=== PATIENT | female | born 2000 | race Caucasian/White ===

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

== ENCOUNTER 2020-03-07 09:28 | Emergency (ER) | payer BC, SELFPAY ==
[2020-03-07 09:29] VITALS: BP 140/108; PULSE 99; RESP 16; TEMP 36.6; O2SAT 98; BMI 29.0
[2020-03-07 09:54] LABS: Absolute Lymphocyte Count 2.18 X10^3/uL (0.83-4.51); Absolute Neutrophil Count 4.2 X10^3/uL (2.0-7.7); Basophil# 0.06 X10^3/uL; Basophil% 0.8 % (0-1); Eosinophils% 1.4 % (0-5); Hematocrit 43.9 % (37-47); Hemoglobin 14.3 g/dL (12.0-15.0); Lymphocyte # 2.18 X10^3/ul (4.0); Lymphocyte % 30.9 % (19-41); Mean Corp Hgb Conc 32.6 g/dL (32-36); Mean Corpuscular Hgb 29.4 pg (27.0-32.0); Mean Corpuscular Volume 90.1 fL (81-99); Mean Platelet Vol. 8.7 fl (6.2-12.0); Monocyte# 0.51 X10^3/uL; Monocyte% 7.2 % (0-10); NRBC Flagged by Analyzer 0 % (0-5); Neutrophil # 4.19 X10^3/uL (2.7-7.7); Neutrophil % 59.4 % (47-70); Platelet Count 428 K/mm3 (150-450); RBC Distribution Width CV 13.2 % (11.6-14.6); RBC Distribution Width SD 43.3 fl (35.1-43.9); Red Blood Count 4.87 M/mm3 (4.2-5.4); White Blood Count 7.1 K/mm3 (4.4-11.0)
[2020-03-07 10:08] LABS: AST(SGOT) 11 U/L (15-37); Alanine Aminotransfer ALT/SGPT 19 U/L (13-56); Albumin, Serum 3.8 g/dL (3.2-5.0); Alkaline Phosphatase 80 U/L (45-117); Anion Gap 4 (5-15); BUN 8 mg/dL (7-18); BUN/Creat Ratio 8.9 RATIO (10-20); Bilirubin, Direct 0.07 mg/dL (0.00-0.30); Calcium,Total 9.4 mg/dL (8.5-10.1); Chloride 111 mmol/L (98-107); Creatinine, Serum 0.89 mg/dL (0.55-1.02); EST Glomerular Filtration Rate 86 mL/min (>60); Est Glom Filt Rate - Afr Amer 104 mL/min (>60); Estimated Creatinine Clearance 95.18 ml/min; Globulin 4.1 g/dL (2.2-4.2); Glucose 93 mg/dL (74-106); Potassium 3.9 mmol/L (3.5-5.1); Protein, Total 7.9 g/dL (6.4-8.2); Sodium Level 141 mmol/L (136-145)
[2020-03-07 10:12] LABS: Alcohol, Blood (Medical)-Serum < 3.0 mg/dL
[2020-03-07 10:19] LABS: Internal QC Validated? YES +Cl - CLEAR BKGD; Pregnancy, Serum, hCG Quali. NEGATIVE Negative
--- NOTE | 2020-03-07 10:28 | ED.DCSUM_ITS ---
History of Present Illness Chief Complaint: Suicidal Informant: Patient Narrative: 19-year-old female presents to the emergency department with suicidal thoughts. She tells me that she has a history of bipolar disorder and sees the counseling center. She reports that her boyfriend of 3 years broke up with her last night stating that he does not love her anymore. She tells me she is not working and is not currently in school. She is currently staying with her parents. She states that it would appear that nobody wants her as she cannot find a job despite actively trying for it. She states that she researched overdosing on her medications and does not think that if she would take all of them that it would kill her. She did cut her left arm which she has a history of last night. She states she did that not as a suicidal gesture but to help with the pain she was emotionally feeling. Past Medical History - Allergies and Home Meds Allergies/Adverse Reactions: Allergies quetiapine [From Seroquel] Allergy (Verified 03/07/20 09:28) NEEDS FOLLOW-UP DEPRESSION, SUICIDAL THOUGHTS Primary Care Physician: Jensen Mcadams MD [Primary Care Provider] - Past Medical History: - - Bipolar disorder Surgical History: noncontributory Lives: With Family Smoking Status: Never smoker Drugs: None Review of Systems General: Denies: Chills, Fever, Sweats Eyes: Denies: Visual changes - bilaterally, Diplopia ENT: Denies: Rhinorrhea, Sore throat Cardiovascular: Denies: Chest pain, Palpitations Respiratory: Denies: Dyspnea, Cough, Dyspnea on exertion Gastrointestinal: Denies: Abdominal pain, Nausea, Vomiting, Diarrhea, Melena, Hematochezia Genitourinary: Denies: Dysuria, Hematuria, Frequency Musculoskeletal: Denies: Back pain, Extremity Pain Skin: Denies: Rash, Wounds Neurological: Denies: Headache, Weakness, Numbness Psych: Reports: Depression, Suicidal thoughts, Suicidal ideations Physical Exam Vital Signs/Narrative: Vital Signs Temp Pulse Resp BP Pulse Ox 03/07/20 09:29 97.8 F 99 16 140/108 H 98 Inital Vital Signs reviewed: Yes General: Well nourished, Well developed, No Acute Distress Head: Normocephalic, Atraumatic Eyes: Perrl, EOMI ENT: Moist mucous membranes, No rhinorrhea Neck: Supple, Nontender Cardiovascular: Regular rate, Regular rhythm, No murmurs Respiratory: No distress, CTA bilaterally, Chest nontender Abdomen: Soft, Nontender, Nondistended, Normal bowel sounds Back: Nontender, Normal Inspection Extremities: Nontender, No edema Skin: Normal color, No rash Neurological: Alert, Oriented x3, Cranial nerves II-XII grossly intact, Normal Strength, Normal Sensation Psychological: Depressed, Tearful Diagnostic/Tx/Re-eval Laboratory Last Values WBC 7.1 K/mm3 (4.4-11.0) 03/07/20 09:35 RBC 4.87 M/mm3 (4.2-5.4) 03/07/20 09:35 Hgb 14.3 g/dL (12.0-15.0) 03/07/20 09:35 Hct 43.9 % (37-47) 03/07/20 09:35 MCV 90.1 fL (81-99) 03/07/20 09:35 MCH 29.4 pg (27.0-32.0) 03/07/20 09:35 MCHC 32.6 g/dL (32-36) 03/07/20 09:35 RDW Std Deviation 43.3 fl (35.1-43.9) 03/07/20 09:35 RDW Coeff of Lorena 13.2 % (11.6-14.6) 03/07/20 09:35 Plt Count 428 K/mm3 (150-450) 03/07/20 09:35 MPV 8.7 fl (6.2-12.0) 03/07/20 09:35 Immature Gran % (Auto) 0.300 % (0.0-0.9) 03/07/20 09:35 Neut % (Auto) 59.4 % (47-70) 03/07/20 09:35 Lymph % (Auto) 30.9 % (19-41) 03/07/20 09:35 [place] % (Auto) 7.2 % (0-10) 03/07/20 09:35 Eos % (Auto) 1.4 % (0-5) 03/07/20 09:35 Baso % (Auto) 0.8 % (0-1) 03/07/20 09:35 Absolute Neuts (auto) 4.2 X10^3/uL (2.0-7.7) 03/07/20 09:35 Absolute Lymphs (auto) 2.18 X10^3/uL (0.83-4.51) 03/07/20 09:35 Nucleated RBC % 0 % (0-5) 03/07/20 09:35 Sodium 141 mmol/L (136-145) 03/07/20 09:35 Potassium 3.9 mmol/L (3.5-5.1) 03/07/20 09:35 Chloride 111 mmol/L (98-107) H 03/07/20 09:35 Carbon Dioxide 26.0 mmol/L (21.0-32.0) 03/07/20 09:35 Anion Gap 4 (5-15) L 03/07/20 09:35 BUN 8 mg/dL (7-18) 03/07/20 09:35 Creatinine 0.89 mg/dL (0.55-1.02) 03/07/20 09:35 Estim Creat Clear Calc 95.18 ml/min 03/07/20 09:35 Est GFR (MDRD) Af Amer 104 mL/min (>60) 03/07/20 09:35 Est GFR (MDRD) Non-Af 86 mL/min (>60) 03/07/20 09:35 BUN/Creatinine Ratio 8.9 RATIO (10-20) L 03/07/20 09:35 Glucose 93 mg/dL (74-106) 03/07/20 09:35 Calcium 9.4 mg/dL (8.5-10.1) 03/07/20 09:35 Total Bilirubin 0.30 mg/dL (0.20-1.00) 03/07/20 09:35 Direct Bilirubin 0.07 mg/dL (0.00-0.30) 03/07/20 09:35 AST 11 U/L (15-37) L 03/07/20 09:35 ALT 19 U/L (13-56) 03/07/20 09:35 Alkaline Phosphatase 80 U/L (45-117) 03/07/20 09:35 Total Protein 7.9 g/dL (6.4-8.2) 03/07/20 09:35 Albumin 3.8 g/dL (3.2-5.0) 03/07/20 09:35 Globulin 4.1 g/dL (2.2-4.2) 03/07/20 09:35 Serum , Qual NEGATIVE Negative 03/07/20 09:35 Urine Opiates Screen NEGATIVE (< 300 ng/mL) 03/07/20 10:40 Urine Methadone Screen NEGATIVE (< 300 ng/mL) 03/07/20 10:40 Ur Barbiturates Screen NEGATIVE (< 200 ng/mL) 03/07/20 10:40 Ur Phencyclidine Scrn NEGATIVE (< 25 ng/mL) 03/07/20 10:40 Ur Amphetamines Screen NEGATIVE (<1000 ng/mL) 03/07/20 10:40 U Methamphetamin-MDMA NEGATIVE (< 500 ng/mL) 03/07/20 10:40 U Benzodiazepines Scrn NEGATIVE (< 200 ng/mL) 03/07/20 10:40 Urine Cocaine Screen NEGATIVE (< 300 ng/mL) 03/07/20 10:40 U Cannabinoids Screen POSITIVE (< 50 ng/mL) H 03/07/20 10:40 Ur Drug Screen Comment 03/07/20 10:40 Ethyl Alcohol < 3.0 mg/dL 03/07/20 09:35 - Medical Decision Making At 1108 the patient is medically clear for crisis/mental health evaluation. After discussing with social work and interviewing the patient and her mom they feel comfortable going home. Patient states that she is no longer suicidal. She has an appointment with her psychiatrist today.. ED Disposition - Plan for ED Patient: Disposition: Home or Assisted Living Diagnosis: Depression Instructions: ED Depression Referrals: Jensen Mcadams MD [Primary Care Provider] - As Needed Additional Instructions: Follow-up with your psychiatrist as scheduled
[2020-03-07 10:58] LABS: Amphetamine Urine VISTA NEGATIVE (<1000 ng/mL); Barbiturate Urine VISTA NEGATIVE (< 200 ng/mL); Benzodiazepine Urine VISTA NEGATIVE (< 200 ng/mL); Cocaine Urine VISTA NEGATIVE (< 300 ng/mL); Ecstacy Urine VISTA NEGATIVE (< 500 ng/mL); Methadone Urine VISTA NEGATIVE (< 300 ng/mL); PCP Urine VISTA NEGATIVE (< 25 ng/mL); THC Urine VISTA POSITIVE (< 50 ng/mL); Vista UDS pH Range 6
--- NOTE | 2020-03-07 11:31 | CM.ED ---
Social Work Consult: Suicidal Informant: Dr. Villa Chief Complaint: Patient reports to have had suicidal thoughts since last night with plan to overdose on my medications. Marital/Social History: Single Living Situation: Lives with parents, Estella and Rober Ulloa and older brother. Support/Resources: Patient reports positive support from family members. Patient active with counseling services [facility] and follows with Rebecca for counseling. Patient reports to follow with Maribell Sharma N.P. for medication management through [facility] as well. History: None. Education/Employment History: Unemployed. Graduated from high school. Completed some collage. Denies any issues with comprehension or understanding. Mental Health Treatment/history: Depression, Anxiety, Bi-Polar. Patient reports to take Abilify, Buspirone, and Prozac and to be compliant with medications. Patient denies any history of inpatient psychiatric placement. Patient does report plan to discontinue counseling with Rebecca through the counseling center due to she made me upset. Triggers/Stressors: Patient reports that patient boyfriendAbner broke up with patient last night. Patient states to have been in dating relationship with Abner for the past 3 years and he was all I had to live for. Coping Skills: my Dog and writing. Abuse Issues: Denies Substance Abuse hx: Reports daily use of tobacco products (vaping). Patient reports occasional weekend use of THC. Patient denies any other substance abuse/use. Risk to Self/Others: Suicidal: Patient reports suicidal thoughts last night and into this morning. Patient reports to have been begging my mom to bring me to the hospital last night. Patient reports to have been contemplating overdosing on patient medications all through the night and to have gotten really close and went to get patient father. Patient father then brought patient to the emergency room this morning for assessment. Patient reports history of suicide attempt at the beginning of this year via taking a few extra of patient medications. Patient reports that last suicidal thoughts was a few months ago prior to last evening and this morning. Patient reports to be having continues suicidal thoughts this morning and during conversation with this social service manager. This social service manager inquiring about what patient might have to live for, patient states I don't know. Patient reports to be feeling worthless. Homicidal: Patient reports homicidal thought about patient boyfrienAbner monae last night due to frustration and being hurt. Patient denies any plan or intent to hurt Abner or others. Violence: Patient reports to have cut forearms last night and prior to last night to have not cut self for about a year. Patient denies any legal issues or other harm against self. Mental Status Exam: A&Ox3 Appearance/General Behavior: Clean. Slumped. Calm. Mood/Affect: Depressed. Tearful. Communication Pattern: Responds to questions. Thought Process: Appropriate. Judgement: Fair. Assessment: Met with patient in room. Introduced self and social service manager role. Patient agreeable to speaking with this social service manager. Patient reports to be unsure if patient would feel safe to self. This social service manager collaborating with patient on possible outpatient plans such as following up with [facility] Behavioral Health program. Patient reports I just feel like I need watched. Patient does not feel comfortable with a plan to return to the community. Patient tearful throughout conversation. Active support and listening provided. Collaborating with Dr. Villa. Updated on above. PLAN: Facilitate transfer to inpatient psychiatric facility. Agusto MELLO, GLENN
--- NOTE | 2020-03-07 11:57 | CM.ED ---
Social Work Telephone call to Vivian Mott. Referral made. Clinical information faxed. Pending review. Agusto Rios MSW, GLENN
--- NOTE | 2020-03-07 13:09 | EKG12_ITS ---
Test Reason : Blood Pressure : / mmHG Vent. Rate : 076 BPM Atrial Rate : 076 BPM P-R Int : 150 ms QRS Dur : 080 ms QT Int : 376 ms P-R-T Axes : 016 052 028 degrees QTc Int : 423 ms Normal sinus rhythm Nonspecific ST abnormality Abnormal ECG Confirmed by MAYA SMITH, XENIA ([id number]), loan expeditor LUH RIVERA ([id number]) on 03/12/2020 9:30:57 A M Referred By: EDD Confirmed By:RANDEE TREJO MD
[2020-03-07 13:20] LABS: Probe Check PASS; Specimen Processing Control PASS
--- NOTE | 2020-03-07 14:54 | CM.ED ---
Social Work Patient motherEstella to patient room and asking to speak with this social welfare research worker. Patient and patient mother have been talking about safety plan to home and what that might look like for patient. Patient reports now to feel safe to return to home. Patient mother reports to not be working the rest of the day or tomorrow and is able to stay with patient. Patient and patient mother now comfortable with plan for patient to discharge to home with mental health follow up. Patient to see Christin Sharma this evening at 6:30pm as a standing appointment and plans to follow up with. This social welfare research worker broached topic of Behavioral Health program at [facility] for further follow up care as well. Patient is open to intake appointment with Behavioral Health program at [facility]. Patient agreeable to intake appointment for 03/08/2020 @ 3:00pm. Patient mother reports to be able to provide transportation for patient. Patient reports to have reason to live as my family. Patient identifies patient mother as main support and person to talk with. Patient and patient mother counseled on lethal means. Patient mother to lock up and manage patient medications and there are no firearms in the home. Patient provided with local counseling resources, appointment reminder for [facility] Behavioral Health, and crisis hotline number. Collaborating with Dr. Villa. Agreeable to safety plan to home with mental health services follow up. Telephone call to Vivian Mott. Referral Canceled. PLAN: Discharge to home with Behavioral Health follow up tomorrow. Agusto MELLO, GLENN
== END 2020-03-07 15:26 | disposition home or self-care (01) ==
PROVIDERS: Emergency Provider Emergency Medicine; PCP Family Medicine
DX: F31.9 Bipolar disorder, unspecified (principal)
CPT/HCPCS: 36415; 80048; 80076; 80307; 80320; 84703; 85025; 87635; 93005; 99284; G0480; U0002

== ENCOUNTER 2020-03-24 13:04 | Emergency (ER) | payer BC, SELFPAY ==
[2020-03-24] VITALS (11 sets, daily range): BP systolic 132–171; BP diastolic 44–101; PULSE 55–132; RESP 14–23; TEMP 36.4–37.1; O2SAT 96–99; BMI 31.0
--- NOTE | 2020-03-24 13:14 | ED.RN ---
MOTHER [employer] EMPLOY[employer], CAME TO TRIAGE, UPSET WITH DAUGHTER, RAISED VOICE SAYING WE'RE NOT DONG THIS AGAIN. THIS RN ASKED MOTHER GIVE DAUGHTER SPACE, TOLD MOTHER WE NEEDED TO EVALUATE PT AND GOAL WAS NOT TO UPSET PT FURTHER. MOTHER WALKED AWAY.
--- NOTE | 2020-03-24 13:31 | RAD_ITS ---
STUDY: X-RAY CHEST REASON FOR EXAM: Female, 19 years old. COUGH, SUICIDAL. NO CHEST COMPLAINTS TODAY TECHNIQUE: Single view of the chest was obtained COMPARISON: None. FINDINGS: No consolidative process, pleural effusion or pneumothorax. Cardiac size within normal limits. Osseous structures demonstrate no acute abnormalities. Platelike atelectasis in the lung bases. IMPRESSION: No acute cardiopulmonary pathology Electronically Signed: Kayode Villalobos, at 15:20 EST Tel , Service support , RAD/Chest 1 View (Portable)
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
[2020-03-24 13:54] LABS: Color, Urine Straw (Yellow); Glucose, Dipstick Normal (Normal); Ketone-Dipstick Negative (Negative); Leukocyte Esterase-Dipstick 500 /ul (Negative); Mucous, Urine 0 SEEN /hpf (<or=2+); Nitrite-Dipstick Negative (Negative); Occult Blood-Urine Negative /ul (Negative); Protein-Dipstick Negative (Negative); Red Blood Cells-Urine 0 SEEN /hpf (0-5); Urine Bilirubin Dipstick Negative (Negative); Urine Clarity Clear (Clear); Urine Urobilinogen Normal (Normal)
[2020-03-24] MEDS: Activated Charcoal 25 GM/120 ML BOT PO (13:55)
[2020-03-24 13:58] LABS: Amphetamine Urine VISTA NEGATIVE (<1000 ng/mL); Barbiturate Urine VISTA NEGATIVE (< 200 ng/mL); Benzodiazepine Urine VISTA NEGATIVE (< 200 ng/mL); Cocaine Urine VISTA NEGATIVE (< 300 ng/mL); Ecstacy Urine VISTA NEGATIVE (< 500 ng/mL); Methadone Urine VISTA NEGATIVE (< 300 ng/mL); PCP Urine VISTA NEGATIVE (< 25 ng/mL); THC Urine VISTA POSITIVE (< 50 ng/mL); Vista UDS pH Range 6
[2020-03-24 14:05] LABS: White Blood Cells 0-5 SEEN /hpf (0-5)
[2020-03-24 14:06] LABS: Amorphous Sediment 2+; Bacteria 1+ /hpf (None Seen); Squamous Epithelial Cells - UA 0-5 SEEN /hpf (5-10)
[2020-03-24] MEDS: Metoclopramide 10 MG/2 ML Vial 5 MG IM (14:09)
[2020-03-24 14:14] LABS: Absolute Lymphocyte Count 2.12 X10^3/uL (0.83-4.51); Absolute Neutrophil Count 6.9 X10^3/uL (2.0-7.7); Basophil# 0.06 X10^3/uL; Basophil% 0.6 % (0-1); Eosinophil# 0.26 X10^3/uL; Eosinophils% 2.6 % (0-5); Hematocrit 44.4 % (37-47); Hemoglobin 14.7 g/dL (12.0-15.0); Lymphocyte # 2.12 X10^3/ul (4.0); Lymphocyte % 21.2 % (19-41); Mean Corp Hgb Conc 33.1 g/dL (32-36); Mean Corpuscular Hgb 29.1 pg (27.0-32.0); Mean Corpuscular Volume 87.9 fL (81-99); Monocyte# 0.63 X10^3/uL; Monocyte% 6.3 % (0-10); NRBC Flagged by Analyzer 0 % (0-5); Neutrophil # 6.88 X10^3/uL (2.7-7.7); Neutrophil % 68.9 % (47-70); Platelet Count 409 K/mm3 (150-450); RBC Distribution Width CV 13.1 % (11.6-14.6); Red Blood Count 5.05 M/mm3 (4.2-5.4)
[2020-03-24 14:29] LABS: AST(SGOT) 12 U/L (15-37); Alanine Aminotransfer ALT/SGPT 21 U/L (13-56); Albumin, Serum 3.9 g/dL (3.2-5.0); Alkaline Phosphatase 94 U/L (45-117); Anion Gap 6 (5-15); BUN 7 mg/dL (7-18); Calcium,Total 9.3 mg/dL (8.5-10.1); Chloride 110 mmol/L (98-107); Creatinine, Serum 0.87 mg/dL (0.55-1.02); EST Glomerular Filtration Rate 88 mL/min (>60); Est Glom Filt Rate - Afr Amer 107 mL/min (>60); Estimated Creatinine Clearance 97.37 ml/min; Globulin 3.9 g/dL (2.2-4.2); Glucose 101 mg/dL (74-106); Potassium 3.8 mmol/L (3.5-5.1); Protein, Total 7.8 g/dL (6.4-8.2); Sodium Level 140 mmol/L (136-145)
[2020-03-24 14:30] LABS: Internal QC Validated? YES +Cl - CLEAR BKGD; Pregnancy, Serum, hCG Quali. NEGATIVE Negative
[2020-03-24 15:03] LABS: Acetaminophen (Tylenol) Level < 2.0 ug/mL (10.0-30.0)
[2020-03-24 15:04] LABS: Alcohol, Blood (Medical)-Serum < 3.0 mg/dL; Salicylate < 1.7 mg/dL (2.8-20.0)
--- NOTE | 2020-03-24 15:31 | EKG12_ITS ---
Test Reason : SUICIDAL Blood Pressure : / mmHG Vent. Rate : 112 BPM Atrial Rate : 112 BPM P-R Int : 142 ms QRS Dur : 076 ms QT Int : 382 ms P-R-T Axes : 072 049 041 degrees QTc Int : 521 ms Sinus tachycardia Prolonged QT Nonspecific T- wave abnormality Abnormal ECG Confirmed by VIDHI SMITH, BERNARDO ([id number]), city editor AGUSTIN KIM ([id number]) on 03/26/2020 1:28:28 PM Referred By: FELICIANO Confirmed By:BERNARDO MOSHER MD
--- NOTE | 2020-03-24 16:40 | ED.RN ---
SITTER AT BEDSIDE, NAOMI, CLOSED THE PT'S DOOR, PT REQUESTED TO TAKE A NAP.
[2020-03-24 17:20] LABS: Magnesium 2.1 mg/dL (1.6-2.6)
--- NOTE | 2020-03-24 17:44 | ED.RN ---
DR. CARRANZA INFORMED THIS NURSE THAT PT WILL OBSERVED LONGER THAT 1829, DUE TO QTc ELONGATION, WILL REPEAT EKG AND LABS LATER TODAY.
--- NOTE | 2020-03-24 18:44 | ED.RN ---
pt tearful and upset that she needs to be in the emergency room longer than expected, this nurse explained due to the medications pt ingested caused the QTc to be prolonged, will re-evaluate in a couple more hours, draw labs and repeat ekg.
--- NOTE | 2020-03-24 20:37 | EKG12_ITS ---
Test Reason : [facility] Pressure : / mmHG Vent. Rate : 090 BPM Atrial Rate : 090 BPM P-R Int : 150 ms QRS Dur : 076 ms QT Int : 344 ms P-R-T Axes : 068 053 036 degrees QTc Int : 420 ms Normal sinus rhythm Nonspecific T wave abnormality Abnormal ECG Confirmed by VIDHI SMITH, BERNARDO ([id number]), marketing editor AGUSTIN KIM ([id number]) on 03/26/2020 1:36:49 PM Referred By: FELICIANO Confirmed By:BERNARDO MOSHER MD
[2020-03-24 21:16] LABS: Anion Gap 6 (5-15); BUN 5 mg/dL (7-18); BUN/Creat Ratio 5.9 RATIO (10-20); Calcium,Total 9.3 mg/dL (8.5-10.1); Chloride 109 mmol/L (98-107); Creatinine, Serum 0.85 mg/dL (0.55-1.02); EST Glomerular Filtration Rate 91 mL/min (>60); Est Glom Filt Rate - Afr Amer 111 mL/min (>60); Estimated Creatinine Clearance 99.66 ml/min; Glucose 107 mg/dL (74-106); Potassium 3.9 mmol/L (3.5-5.1); Sodium Level 141 mmol/L (136-145)
--- NOTE | 2020-03-24 22:32 | ED.RN ---
Payal, crisis counselor, called this nurse for update on pt. Pt stated she will convince the crisis counselor to discharge pt home and not send pt to a [facility] facility. Pt has been texting her mother to convince her to let pt go home. Payal informed of same.
[2020-03-25 00:40] VITALS: BP 132/84; PULSE 95; RESP 18; TEMP 36.7; O2SAT 95
== END 2020-03-25 00:57 ==
LOC: ED 14:09
PROVIDERS: Emergency Provider Emergency Medicine; PCP Family Medicine
DX: R45.851 Suicidal ideations (principal); T43.222A Poisoning by selective serotonin reuptake inhibitors, intentional self-harm, initial encounter; F31.9 Bipolar disorder, unspecified
CPT/HCPCS: 36415; 71045; 80048; 80053; 80307; 80320; 80329; 81001; 83735; 84703; 85025; 87086; 87088; 87426; 93005; 96372; 99285; G0480

== ENCOUNTER → 2022-04-23 | Outpatient (CLI) | payer BC, SELFPAY ==
[2022-04-23 18:57] LABS: Vitamin D,25 Hydroxy 36.5 ng/mL
[2022-04-23 19:00] LABS: Anion Gap 7 (5-15); BUN 12 mg/dL (7-18); BUN/Creat Ratio 15.5 RATIO (10-20); Chloride 107 mmol/L (98-107); Cholesterol 185 mg/dL (200); Creatinine, Serum 0.78 mg/dL (0.55-1.02); EST Glomerular Filtration Rate 99 mL/min (>60); Est Glom Filt Rate - Afr Amer 120 mL/min (>60); Glucose 75 mg/dL (74-106); High Density Lipoprotein 65 mg/dL; Potassium 4.2 mmol/L (3.5-5.1); Sodium Level 140 mmol/L (136-145); Thyroid Stim Hormone (TSH) 2.53 uIU/mL (0.358-3.74); Triglycerides 126 mg/dL; Very Low Density Lipoprotein 25 mg/dL (5-40)
== END | disposition home or self-care (01) ==
PROVIDERS: PCP Family Medicine; Visit Provider Family Medicine
DX: Z00.00 Encounter for general adult medical examination without abnormal findings (principal)
CPT/HCPCS: 36415; 80048; 80061; 82306; 84443

== ENCOUNTER 2024-01-04 08:00 | Outpatient (RCR) | payer BC, SELFPAY ==
--- NOTE | 2024-01-04 09:00 | BH.SGPN.GN ---
Behaviors/Verbalizations/Mental Status: [] Client alert and oriented, casually dressed and groomed. Eye contact good. Motor activity appropriate. Speech within normal limits. Affect congruent, mood anxious and euthymic. Thoughts linear, logical, no signs of hallucinations or delusions. Reviewed client?s symptom tracker, no risk for suicidal ideation, plan, or intent as of 01/04/24 Client Response/Progress/Benefit: [] Client's first day in program and getting comfortable to group environment. Responded well to session, with being attentive towards other group members. Client discussed nervousness with starting program and being able to get up and start day this way with struggling to keep routines. Client discussed struggle of maintaining a job and said that coming here today was a big step for her. Client indicated that she gets nervous talking in a group, but was able to share comfortably today in group. Client receptive to input from group members on how they felt when starting the program and tips to manage stress with groups. Client appeared to benefit from reflecting on current MH and goals. Client will continue IOP tx to prevent decompensation and improve overall thinking. Narrative Note: []
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
--- NOTE | 2024-01-06 09:30 | BH.NA_ITS ---
Physical Data Vital Signs Pulse Rate: 73 Blood Pressure: 143/86 Height/Weight Height: 1.7 m Weight:: 93.894 kg Weight in Pounds: 207.0 lbs Current Medication Compliance Medication Compliance Do you take your medication as prescribed?: Yes Nutritional History Appetite Nutritional Instructions: Describe your appetite:: Good Additional nutritional information:: Client states she gained about 60lbs for the short time she was at college but states her appetite is stable right now. Functional Assessment Sleep Pattern Describe any problems with sleeping: Client states she sleeps 7-8 hours per night. Sensory/Communication Assess Vision Problems Do you have any vision problems?: Glasses Communication Problems Do you have difficulty understanding what people are saying?: No Medical Problems/History Neurological Conditions Neurological: Headaches Gastrointestinal Conditions Gastrointestinal: Other (See comments) (GERD) Musculoskeletal Conditions Musculoskeletal: Other (See comments) (joint pain/back pain but has not been formally diagnosed with anything) Family History Family History Other Diabetes Surgical History Surgical History Have you had any surgeries? If so, list type and date:: No Substance Abuse Substance Abuse Please describe substance abuse in the last 30 days:: Client states she was using alcohol a couple of years ago but denies recent use. Client states she vapes nicotine and occasionally has cigarettes. Client states she has a history of marijuana use but has not used recently. Client denies regular caffeine use. Mental Status Summary Mental Status Significant Findings/Observations on Appearance and Mood:: Client is alert and oriented x 4. Client is casually groomed. Client is cooperative with assessment. Client makes good eye contact. Client's voice has normal rate and volume. Client has appropriate affect. Client makes logical associations and has normal processing. Client denies delusions/hallucinations. Client denies any active SI with plan/or intent but does have a history of chronic passive SI. Suicide Assessment Suicidal Ideation Are you currently or have you been suicidal in the past?: Yes Suicidal Intentional Rating Scale (SIRS): Suicidal thoughts (past) Physician Notification Past Psychiatric History MH Treatment Hx Past Psychiatric Medications:: Depakote (impaired liver function), Seroquel (increased depression and skin picking), Buspar Age of first mental health symptoms: Client states she first took medication for mental health around age 17. Client states she was diagnosed with bipolar disorder Describe (age, circumstance, etc) any past hospitalizations: [facility] in 2021- by overdose Current providers for mental health treatment (counselor, psychiatrist, telephonic nurse case manager, etc.): Rober for counseling at [facility] Fall Risk Assessment Age Age: Less than 60 Mental Status Mental Status: Willing & able to ask for assistance when needed Physical Status Physical Status: No problems Impairments Impairments: None Elimination Elimination: Continent AND independent Gait or Balance Gait or Balance: Walks independently Hx of Falls History of falls in the past 6 months: No known history Medications/Substances Psychotropics:: Antidepressants and Antipsychotics Medications/substances used within the past 24 hours or ordered to administer: 1-2 of the medications/substances listed above Total Score Total Points:: 1 RN Summary of Impressions Impressions Recommendations Impressions: Psychiatric Issues: 1. Bipolar disorder, NOS 2. Generalized anxiety disorder 3. Borderline personality disorder 4. Rule out PTSD Level of Care How do the client's current symptoms and functional deficits support need for this level of care?: Client was referred to IOP by her PCP for depression and anxiety. Client states she recently had a break up from her boyfriend about a month ago and has been feeling more depressed since. Client reports that any time she feels criticized or yelled at, she becomes more depressed and anxious. Client states this is why she has been unable to keep a job. Client states she feels her mom is putting pressure on her to get a job, and this is a stressor. Da hitchcock reports some crying, avoidance and irritability. Client states she has had some SI in the past, but denies recent SI. IOP will promote gains and prevent further decompensation while providing social support and skills training.
--- NOTE | 2024-01-06 10:10 | BH.SGPN.GN ---
Behaviors/Verbalizations/Mental Status: [] Client alert and oriented, casually dressed and groomed. Eye contact good. Motor activity appropriate. Speech within normal limits. Affect congruent, mood euthymic and anxious. Thoughts linear, logical, no signs of hallucinations or delusion Client Response/Progress/Benefit: [] Client was an active participant AEB contributing to discussion, taking notes, and engaging in group activity. Connected with the topic of pitfalls and listened to group discussion on barriers that prevent from choosing a healthier path to mental wellness. Group worked together to identify examples of personal pitfalls which included; isolation, avoidance, making excuses, denial, distortions, and unhealthy coping. Client identified depending on others, self sabotage, and avoidance as personal pitfalls that have inhibited progress in the past. Client benefited from group as client learned to better identify potential barriers to improving mental health symptoms. Client will continue IOP tx to prevent decompensation, gain healthy support, and increase daily self care. Narrative Note: []
[2024-01-06 10:37] VITALS: BP 143/86; PULSE 73
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
--- NOTE | 2024-01-06 11:45 | BH.DR.ITP ---
Initial Treatment Plan Patient Information Visit Information: ADMISSION DATE: EXPECTED LOS: 4-6 weeks Problems/Symptoms Problem #1:: Depression Symptom:: Sadness, recent thoughts of self-harm, hopelessness, worthlessness, decreased concentration, guilt, biological disruption of sleep with hypersomnia, irritability Problem #2:: Anxiety Symptom:: Worry, rumination, panic attacks, avoidance
--- NOTE | 2024-01-06 14:49 | BH.MTP ---
Master Treatment Plan Patient Information Program Physician:: Dr. Jaylin Calvin Primary Therapist:: Giulia TRAN Psychiatric Diagnoses Psychiatric Diagnoses:: Bipolar disorder, NOS; Generalized anxiety disorder; Borderline personality disorder; Rule out PTSD Diagnosis Code(s):: F 31.9; F 41.1 Estimated LOS Estimated LOS (in weeks):: 6 Problem/Goal #1 Problem/Goal #1 Stated Goal:: Pt will decrease depressive symptoms, hopelessness, worthlessness, negative self-talk, and self-harm. Description of Barriers: Pt reports she has been in therapy for a while, but self-reports that she does not utilize the skills consistently. Pt is unable to keep a job due to her low distress tolerance per her report. Pt uses [employer] and smokes/vapes daily. Functional Impact: Pt is a 23-year-old female with a history of Bipolar NOS, MDD, and JAVIER. Pt was referred to [facility] by her PCP, Dr. Panchal, due to worsening symptoms of depression, anxiety, and agitation over the past few weeks. Triggers include recent break-up and difficulty maintaining a job. Pt currently endorses crying spells, hopelessness, lack of motivation, lack of energy, increased sleep, racing thoughts, restlessness, poor concentration, and isolation. Pt reports her mental health symptoms lead to pt either quitting or getting let go from jobs. Pt also reports difficulty functioning in her daily life due to symptoms. Goal Relevant Strengths/Supports: Pt is connected with outpatient therapy and she has a PCP. Pt reports being close with her mother and she reports motivation to get help. Objectives Objective #1: Stated Objective: Pt will learn and utilize 2-3 healthy coping strategies to better manage depressive symptoms and reduce frequency of SI as shown by a decrease of DMS-5 symptoms for depression. Interventions: Through group and individual sessions, therapist will help pt identify triggers and warning signs of depression and guilt including emotional, physical, and behavioral changes. Therapist will teach pt various coping skills to manage symptoms and give pt tangible resources to use to regulate emotions. Therapist will use cognitive restructuring techniques and help pt gain awareness of negative thoughts that reinforce guilt and depression. Therapist will provide psychoeducation on maintenance cycles and help pt learn ways to break unhealthy maintenance cycles. Therapist will help pt incorporate behavioral activation and assist pt in setting SMART goals. Discharge Criteria: Pt will have met this goal when can report learning and using at least 2 coping skills to manage depressive symptoms and reduce isolation. Additionally, pt will have met this goal when pt's DSM-5 scores for depression decrease. Target Date: 02/15/24 Review Date: 02/01/24 Status: open Objective #2: Stated Objective: Pt will identify 2 triggers and 2 coping skills to use when pt experiences mood dysregulation and has increased urges to engage in unhealthy, impulsive coping skills. Interventions: Through individual and group counseling pt will be provided with education on healthy coping skills to manage mood symptoms, impulse, and crisis behaviors. Therapist will provide information on healthy alternatives to emotion release. Individual therapist will teach pt DBT techniques to increase emotional regulation and mindfulness. Therapist will also engage pt to use self-compassion while working to change behaviors. Discharge Criteria: Pt will have accomplished this goal when pt can identify at least 2 triggers and 2 coping skills to increase mood stability and reduce unhealthy action urges. Target Date: 02/15/24 Review Date: 02/01/24 Status: open Problem/Goal #2 Problem/Goal #2 Stated Goal:: Will reduce anxiety symptoms through increasing emotional regulation and distress tolerance skills Description of Barriers: Pt reports she has been in therapy for a while, but self-reports that she does not utilize the skills consistently. Pt is unable to keep a job due to her low distress tolerance per her report. Pt uses [employer] and smokes/vapes daily. Functional Impact: Pt is a 23-year-old female with a history of Bipolar NOS, MDD, and JAVIER. Pt was referred to [facility] by her PCP, Dr. Panchal, due to worsening symptoms of depression, anxiety, and agitation over the past few weeks. Triggers include recent break-up and difficulty maintaining a job. Pt currently endorses crying spells, hopelessness, lack of motivation, lack of energy, increased sleep, racing thoughts, restlessness, poor concentration, and isolation. Pt reports her mental health symptoms lead to pt either quitting or getting let go from jobs. Pt also reports difficulty functioning in her daily life due to symptoms. Goal Relevant Strengths/Supports: Pt is connected with outpatient therapy and she has a PCP. Pt reports being close with her mother and she reports motivation to get help. Objectives Objective #1: Stated Objective: Pt will increase ability to manage stressors and anxiety by gaining 2-3 distress tolerance skills. Interventions: Through group and individual therapy, pt will learn various coping skills to help manage stress and anxiety. Therapist will utilize DBT distress tolerance skills to increase awareness and give pt tools to more effectively manage anxiety. Therapist will provide psychoeducation on emotional regulation and help pt identify unhealthy coping skills he wants to change. Discharge Criteria: Pt will have accomplished this goal when can report improved ability to manage stressors and identify at least 2 distress tolerance skills. Target Date: 02/15/24 Review Date: 02/01/24 Status: open Objective #2: Stated Objective: Pt will identify 2-3 anxiety triggers and 2 coping skills to use when feeling anxious or overwhelmed to manage anxiety as shown by reducing DSM-5 scores for anxiety Interventions: Therapist will provide education on anxiety, avoidance behaviors, and maintenance cycles. Therapist will help pt explore personal symptoms and warning signs of anxiety and irritability. Therapist will teach pt coping skills to improve emotional regulation, mindfulness, and distress tolerance to help pt cope with anxiety in the moment. Discharge Criteria: Pt will have accomplished this goal when she can identify at least 2 triggers and report using 2 coping skills to manage anxiety. Additionally, pt will have accomplished this goal AEB reduction of DSM-5 scores for anxiety. Target Date: 02/15/24 Review Date: 02/01/24 Status: open
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
--- NOTE | 2024-01-07 09:05 | BH.SGPN.GN ---
Behaviors/Verbalizations/Mental Status: [] Eye contact good. Motor activity appropriate. Speech within normal limits. Affect congruent, mood content but some anxiety. Thoughts linear, logical, no signs of hallucinations or delusions. Reviewed client?s symptom tracker, pt denies SI,?plan, or intent as of 01/07/2024. Client Response/Progress/Benefit: [] Client receptive of session, attentive and willing to process with group. ?Identified mental health ?win as doing well to follow-through with showing up for IOP this morning despite struggling with anxiety about doing so. Noted reminding herself of the potential benefits of doing so. Additional win noted as spending time practicing self-reflection last night. Reports it was uncomfortable at first but overall beneficial. Stressor identified as her brother and [id number] planning to move out of state soon. Pt reports plans to spend as much time as possible with them beforehand. Receptive of and appearing to benefit from group support. Recommended continued IOP tx to promote mood stability, consistent skill application, well as prevent decompensation. Narrative Note: []
--- NOTE | 2024-01-07 10:10 | BH.SGPN.GN ---
Behaviors/Verbalizations/Mental Status: [] Eye contact is good. Motor activity is appropriate. Appearance is casual. Speech is Appropriate. Mood is euthymic. Affect is congruent. Thoughts are linear and logical. No evidence of psychosis. Client Response/Progress/Benefit: [] Pt engaged participant AEB listening to others, engaging in activity, and providing feedback at times. Attentive during psychoeducation and provided insight into obstacles that impede mental wellness. Pt shared with group current mental health reality and desired mental health reality. Stating she would like to be able to manage mental health more effectively so she can maintain a job and improve communication skills. Identified barriers to desired reality include: poor communication, not practicing skills, poor self-care, and low motivation. Benefited from taking look at current mental health state and obstacles for progress. Pt to continue IOP tx to challenge distorted thoughts, improve confidence, and prevent decompensation.
--- NOTE | 2024-01-07 11:15 | BH.SGPN.GN ---
Behaviors/Verbalizations/Mental Status: []Eye contact is good. Motor activity is appropriate. Appearance is neat. Speech is Appropriate. Mood is anxious and euthymic. Affect is congruent. Thoughts are linear and logical. No evidence of psychosis. Client Response/Progress/Benefit: []Pt was an engaged participant in group discussion and activity. Worked with group to identify strategies to help overcome barriers and obstacles to desired reality. Group developed strategies for the common barriers. Identified personal barriers to desired reality and choose one obstacle to work. Pt stated pt wants to work on barrier of avoidance by working more on using grounding skills like deep breathing to manage her anxiety. Pt seemed to benefit from increased repertoire of healthy coping skills/strategies to overcome common barriers to moving forward. Pt is to continue IOP to promote mood stability, increase distress tolerance skills, and improve daily functioning. Narrative Note: []
--- NOTE | 2024-01-11 09:00 | BH.SGPN.GN ---
Behaviors/Verbalizations/Mental Status: [] Eye contact is good. Motor activity is appropriate. Appearance is casual. Speech is Appropriate. Mood is anxious. Affect is congruent. Thoughts are linear and logical. No evidence of psychosis. Reviewed daily check in sheet and no reports of suicidal ideations or intent. Client Response/Progress/Benefit: [] Pt was an active participant in group discussion. Attentive. Daily symptom tracker notes 3/5 for anxiety and 2/5 for depressed mood. Pt was able to identify mental health wins and healthy habits. Shared that she has been practicing coping, calming, and mindfulness skills. She has been trying to use these skills when she notices herself becoming anxious, stressed, angry, or depressed. Gave an example of implementing skills early which proved to be beneficial. Emotion for today is detached'. Progress noted. Benefited from group support, encouragement, and feedback. Will continue in IOP to prevent decompensation, stablize mood, and improve functioning. Narrative Note: []
--- NOTE | 2024-01-11 10:15 | BH.SGPN.GN ---
Behaviors/Verbalizations/Mental Status: []Client alert and oriented, casually dressed and groomed. Eye contact good. Motor activity appropriate. Speech within normal limits. Affect congruent, mood content. Thoughts linear, logical, no signs of hallucinations or delusions. Client Response/Progress/Benefit: []Pt was an attentive an active participant, AEB taking notes and providing input in group discussion when prompted. Attentive during psychoeducation. Pt engaged during interactive discussion in which the group defined self-care and discussed its benefits. Group discussed barriers to engaging in self-care. Group members together came up with guilt, time, ?people pleasing?, not knowing what to do, and perception that its unproductive as barriers to engage in self-care. Pt stated their personal barrier is feeling like pt must ?earn it and lack of motivation to practice self-care. Pt participated in small groups where they worked to identified and challenged common self-care ?myths?. Benefited from increased awareness of self-care, its benefits, and the consequences of not utilizing self-care strategies. Will continue IOP tx to prevent rehospitalization, improve daily functioning, and increase distress tolerance skills. Narrative Note: []
--- NOTE | 2024-01-11 11:18 | BH.SGPN.GN ---
Behaviors/Verbalizations/Mental Status: [] Client alert and oriented, casually dressed and groomed. Eye contact good. Motor activity appropriate. Speech within normal limits. Affect congruent, mood anxious and depressed. Thoughts linear, logical, no signs of hallucinations or delusions. Client Response/Progress/Benefit: []Client engaged in discussion reviewing different areas of self-care and completing self-assessment of current self care, as well as providing input throughout discussion. Did well to complete self-care self-assessment worksheet. Client identified current self-care practices and what self-care activities client wants to start using. Client selected psychological self-care to begin practicing more consistently. Client plans to do this by challenging herself to spend time unplugged from social media daily. Appeared to benefit from completing the self-care evaluation and gaining insights into current self-care practices, as well as identifying areas in which client would like to improve upon. Client will continue IOP tx to prevent decompensation, improve mood stability, and increase healthy coping repertoire. Narrative Note: []
--- NOTE | 2024-01-13 09:00 | BH.SGPN.GN ---
Behaviors/Verbalizations/Mental Status: [] Pt alert and oriented, neatly dressed and groomed. Eye contact good. Motor activity appropriate. Speech within normal limits. Affect congruent, mood euthymic. Thoughts linear, logical, no signs of hallucinations or delusions. Reviewed pt?s symptom tracker, no risk for suicidal ideation, plan, or intent 01/13/24 Client Response/Progress/Benefit: []Pt responded well to session, attentive and engaged. Pt reports feeling anxious and grateful this morning. Pt shared she is not sure why she feels anxious, but she connected with peers who mentioned they get anxious when they are doing better. Pt's mental health wins today include having a spiritual moment yesterday and getting to hang out with a bunch of her family. Pt reports she is really benefitting from IOP and she has been using deep breathing consistently. Pt appeared to benefit from reflecting on positives and connecting with peers. Pt will continue IOP tx to prevent decompensation, improve distress tolerance, and increase self-confidence. Narrative Note: []
--- NOTE | 2024-01-13 10:10 | BH.SGPN.GN ---
Behaviors/Verbalizations/Mental Status: [] Eye contact is fair. Motor activity is appropriate. Appearance is casual. Speech is Appropriate. Mood is anxious and dysthymic. Affect is constricted. Thoughts are linear and logical. No evidence of psychosis. Client Response/Progress/Benefit: [] Pt an active participant in group discussions. Participated during interactive discussion on defining conflict (internal/external) and possible benefits to conflict. Attentive during psychoeducation on conflict styles (Avoidant, Accommodating, Competing, Cooperative) and engaged during interactive discussion in which peers identified the benefits and consequences to each conflict style. Pt identified their primary conflict style as avoidant with friends and is collaborating with family. Benefited from increased awareness of the impact of conflict styles in mental health. Will continue in IOP tx to improve distress tolerance, increase healthy coping skills, and prevent decompensation.
--- NOTE | 2024-01-13 14:51 | BH.MDN ---
Multi-Disciplinary Note Note 30-min Individual: Time Started:: 11:40 Date: 01/13/24 Purpose of session/treatment goals addressed:: To work on goal #2 of pt's tx plan. Eye Contact:: Good Motor Activity:: Restless Appearance:: Casual Speech:: Appropriate Mood:: Euphoric (pt reports feeling slightly manic.) Affect:: Full Thoughts:: Linear, Logical and No evidence of hallucinations/delusions noted Staff Interventions:: CBT techniques, mindfulness skills, strengths perspective, goal setting, taught coping skills and other (discussed warning signs for ana and worked on a stress management worksheet.) Client Response:: Pt responded well to session, open to meeting with therapist. Pt reports I might be getting manic as pt has more energy, motivation, and she is more productive currently. Pt stated she is still sleeping though which is positive. Pt reported it can be hard for her to decipher what her baseline is from her hypomania. Pt receptive to discussion on this and gained insight that spending money is her baseline while starting more projects that usual is a sign of hypomania. Pt brought in some stress management worksheets she printed and wanted to work on today. This helped pt identify ways she responds to stress and pt was able to see if these responses are helpful or harmful. Most of pt's responses to stress included some form of avoidance or shutting down. Pt shared these are effective in the moment, but it makes it very challenging for pt to regulate her emotions and maintain employment. Pt stated she has been trying to use more calming skills to manage anxiety and pt was open to the idea of building distress tolerance through goals in IOP. Pt shared she would benefit from doing some exposure goals to reduce pt's social anxiety and fear of what others will say. Pt shared she can work on this by challenging herself to share more when she is put into a small group during group sessions. Pt is also encouraged to practice Delay, Distract, Decide when she has urges to avoid, skin-pick, or shut down. Risks/Concerns:: Pt reports belief she is becoming hypomanic, but pt is still sleeping which is positive. Pt denies any SI, plan, or intent. Pt receptive to working on practicing distress tolerance skills. Progress Toward Goals/Plan:: Pt's second week of IOP tx and pt reports I love it. Pt shared she is enjoying the topics and also socializing. Pt has been avoiding and isolating a lot lately, so this is helping pt gain social confidence. Pt's anxiety is the biggest reason for seeking IOP tx per her report. Pt has been unable to maintain a job due to her anxiety which then triggers depressive symptoms. Pt will continue IOP tx to prevent decompensation, increase distress tolerance skills, and improve daily functioning. Time Stopped:: 12:15
--- NOTE | 2024-01-14 09:05 | BH.SGPN.GN ---
Behaviors/Verbalizations/Mental Status: [] Eye contact good. Motor activity appropriate. Speech within normal limits. Affect congruent, mood dysthymic. Thoughts linear, logical, no signs of hallucinations or delusions. Reviewed client?s symptom tracker, pt denies SI,?plan, or intent as of 01/14/2024. Client Response/Progress/Benefit: [] Client receptive of session, attentive and willing to process with group. Reports ongoing sx of depression?(3/5) and improving anxiety (3/5) per daily sx tracker. ?Identified mental health ?win as doing well to use opposite action and positive self-talk to encourage herself to remain consistent with taking medications. Additional win noted as continued progress with goals of having more consistently open and honest communication with supports, as pt self-reports struggling with shutting down. Stressor noted as an influx in distorted thoughts and fears that I'll never get better. Appeared to benefit from group supportive feedback, suggestions, and thought challenging. Recommended continued IOP tx to maintain mood stability, promote consistent skill application, well as prevent decompensation. Narrative Note: []
--- NOTE | 2024-01-14 10:10 | BH.SGPN.GN ---
Behaviors/Verbalizations/Mental Status: [] Eye contact is good. Motor activity is appropriate. Appearance is casual. Speech is Appropriate. Mood is content. Affect is congruent. Thoughts are linear and logical. No evidence of psychosis. Client Response/Progress/Benefit: [] Pt receptive to session AEB listening attentively to others and taking notes. Pt attentive and contributing throughout psychoeducation on the cognitive triangle and maintenance cycles. Pt engaged during group discussion reviewing the impact of daily activities and behaviors in either reinforcing unhealthy maintenance cycles and depression or assisting in reducing symptoms (?down? vs ?up? activities). Pt identified personal ?down? activities they engage in as: isolating, napping, shutting down, and skin picking. Attentive during discussion on Common ?Up? activities Pt identified theirs to include: being creative, getting outside, and being social. Appeared to benefit from increased awareness of current behaviors and impact these have on mental health. Will continue IOP to reduce negative self-talk, improve daily functioning, and increase use of healthy coping skills. Narrative Note: []
--- NOTE | 2024-01-14 11:10 | BH.SGPN.GN ---
Behaviors/Verbalizations/Mental Status: [] Eye contact is good. Motor activity is appropriate. Appearance is casual. Speech is Appropriate. Mood is euthymic. Affect is full. Thoughts are linear and logical. No evidence of psychosis Client Response/Progress/Benefit: [] Pt responded well to session, attentive and engaged in group discussions and activity. Active participant as group discussed values and the benefits that knowing one's values can have on one's mental health. Pt explored own values and identified personal top values. Pt stated personally important values are family and hobbies. ?Pt set a goal to make time to work on learning a new hobby.. Benefited from increased awareness of their personal values and how incorporating their values into behavioral activation goals can positive impact mental health. Will continue in IOP to prevent decompensation, gain healthy coping skills, stablize mood, and improve functioning. Narrative Note: []
== END 2024-01-18 23:59 ==
LOC: BHIOP 08:00
PROVIDERS: PCP Family Medicine; Referring Provider Psychiatry & Neurology Psychiatry; Visit Provider Psychiatry & Neurology Psychiatry
DX: F31.9 Bipolar disorder, unspecified (principal); F41.1 Generalized anxiety disorder; F60.3 Borderline personality disorder; Z79.899 Other long term (current) drug therapy
CPT/HCPCS: S9480; 90832; 90853

== ENCOUNTER 2024-01-19 08:04 | Outpatient (RCR) | payer BC, SELFPAY ==
[2024-01-19 00:48] VITALS: BP 143/86; PULSE 73
--- NOTE | 2024-01-19 09:00 | BH.SGPN.GN ---
Behaviors/Verbalizations/Mental Status: [] Eye contact is good. Motor activity is appropriate. Appearance is casual. Speech is Appropriate. Mood is depressed/irritable. Affect is congruent.. Thoughts are linear and logical. No evidence of psychosis. Reviewed daily check in sheet and no reports of suicidal ideations or intent. Client Response/Progress/Benefit: [] Pt participated at times during the group discussions. Attentive. According to pt she was in a ?manic phase? last week and she ?crashed? on Thursday. Reports feeling sad and anxious since Thursday. Perspective that she has little control of her emotions. Emotion for today is ?troubled?. According to pt she is still practicing her coping skills and engaging socially. Regression noted. Benefited from group support, encouragement, and feedback. Will continue in IOP to prevent decompensation, stabilize mood, and increase healthy coping. Narrative Note: []
--- NOTE | 2024-01-19 10:15 | BH.SGPN.GN ---
Behaviors/Verbalizations/Mental Status: []Eye contact is good. Motor activity is appropriate. Appearance is casual. Speech is Appropriate. Mood is euthymic and anxious. Affect is congruent. Thoughts are linear and logical. No evidence of psychosis. Client Response/Progress/Benefit: [] Pt was engaged and an active participant throughout, providing input and taking notes. Participated throughout interactive discussion on defining anxiety and identifying cognitive and physiological symptoms of anxiety. Group discussed the role of anxiety on isolation, avoidance, and who this emotion impacts their ability to start and complete activities/goals. Pt identified their physical/physiological signs of anxiety (i.e. dissociating, difficulty breathing, and GI issues). Pt identified safety behaviors (i,e shut down, avoid people and things, and sleep.) Benefited from increased awareness and insight on anxiety and its impact. Will continue in IOP to improve daily functioning, increase distress tolerance skills, and improve interpersonal effectiveness skills. Narrative Note: []
--- NOTE | 2024-01-19 11:15 | BH.SGPN.GN ---
Behaviors/Verbalizations/Mental Status: []Pt alert and oriented, casually dressed and groomed. Eye contact good. Motor activity appropriate. Speech within normal limits. Affect congruent, mood euthymic. Thoughts linear, logical, no signs of hallucinations or delusions. Client Response/Progress/Benefit: [] Pt was an active participant AEB pt providing input and listening attentively to peers. Attentive during psychoeducation on mindfulness coping skills and their impact on reducing anxiety and improving overall mental health wellness. Group was able to identify self-soothing and mind-based coping skills which included: 5-senses, meditation, deep breathing, TIPP, thought challenging, and progressive muscle relaxation. Pt also participated with peers in practicing mindfulness skills in session including deep breathing. Pt would like to work on using opposite action when she wants to avoid to manage anxiety. Appeared to benefit from increasing repertoire of anxiety reduction skills. Pt will continue in [facility] tx to promote mood stability, increase use of healthy coping skills, and improve daily functioning. Narrative Note: []
--- NOTE | 2024-01-20 09:00 | BH.SGPN.GN ---
Behaviors/Verbalizations/Mental Status: []Pt alert and oriented, neatly dressed and groomed. Eye contact fair. Motor activity appropriate. Speech within normal limits. Affect congruent, mood anxious and tired. Thoughts linear, logical, no signs of hallucinations or delusions. Reviewed pt?s symptom tracker, no risk for suicidal ideation, plan, or intent 01/20/24 Client Response/Progress/Benefit: []Pt was an active participant in group discussions. Attentive. Able to identify mental health wins including looking forward to seeing the psychiatrist today and journaling which has been helpful. Pt's stressor today is that pt feels she recently crashed from a manic episode and now pt is feeling more negative and down. Pt stated pt is feeling irritated this morning. Pt receptive to feedback from peers which pt reported was helpful. Progress noted. Benefited from group support, encouragement, and feedback. Will continue in IOP to prevent decompensation, improve daily functioning, and combat distortions. Narrative Note: []
--- NOTE | 2024-01-20 10:10 | BH.SGPN.GN ---
Behaviors/Verbalizations/Mental Status: [] Eye contact is good. Motor activity is appropriate. Appearance is casual. Speech is Appropriate. Mood is content. Affect is congruent. Thoughts are linear and logical. No evidence of psychosis Client Response/Progress/Benefit: [] Pt responded well to session AEB contributing to small group discussion, taking notes, and listening attentively to others. Group defined anger and discussed the benefits of managed anger and anger as a secondary emotion. Group shared perspective on benefits of anger as advocating for self and getting needs met, as well as a catalyst for change. Pt completed worksheet on anger triggers and personal warning signs of anger. Pt identified struggling more to manage other's anger responses. Appeared to benefit from increased knowledge of the anger cycle as well as personal triggers. Will continue IOP to increase healthy coping, prevent decompensation, and improve mood stability. Narrative Note: []
--- NOTE | 2024-01-20 12:12 | PCM.BH.PN_ITS ---
Progress Note Progress Note: History of Present Illness/Interim History: Patient is a 23-year-old female with a history of bipolar disorder NOS, depression, anxiety and cluster B traits who is seen in follow-up at the [facility] behavioral health [facility]. I last saw the patient 2 weeks ago and at that time no medication changes were made as her Prozac had been increased 1 week before. Patient is somewhat inconsistent in her history at times. She states that her depression overall is improving but then later states that she feels she had a manic episode last week and then crashed into a deep depression which she is still in. She has said that she has increasing episodes of dissociation or fogginess and feels she cannot function and and cannot learn much due to this when she is in the groups. But today she says that she feels she is learning skills in the groups. She still vaping nicotine all day every day. Has not used marijuana for several months only because she has no money to buy it. She states that she had a panic attack about 3 days ago but told another staff member that she had not had panic attacks since October 2023 a day ago. At initial eval she says she last cut herself 1 to 2 months ago but then today states that she has not done any self-harm since 4 months ago. She denies passive thoughts of , suicidal ideation, plan for suicide, homicidal ideation, hallucinations, delusions. She feels occasionally hopelessness. Current Psychiatric Medications: [] Prozac 40 mg p.o. daily (dose increased 3 weeks ago); Abilify 30 mg p.o. daily; carbamazepine 200 mg 1 p.o. twice a day but patient only takes it once a day. Mental Status Examination: [] Patient is a 23-year-old female who is casually dressed and groomed with good hygiene and appears normal for stated age. She is ambulatory with a normal gait and has no psychomotor agitation or retardation. Eye contact is good and speech is normal rate and rhythm and fluent with no pressure. Mood is depressed and anxious. Affect is full and normal. Thought process is goal-directed and organized. Thought content: There is no evidence of passive thoughts of , suicidal ideation, plan for suicide, homicidal ideation, hallucinations or delusions. Reality testing is intact. Intelligence is above average. Insight is limited but improving. Judgment is intact. Impulsivity is high. Diagnoses: [] 1. Bipolar disorder, NOS 2. Generalized anxiety disorder 3. Borderline personality disorder 4. Rule out PTSD 5. Primary support and work issues Plan: [] The patient will continue the IOP and behavioral health at [facility] as the structure, support, education and group therapy will hopefully prevent worsening of the patient's symptoms. She felt safe during the interview and if it anytime she does not feel safe she agrees to let us know or go to the emergency room. Long discussion was had with the patient about the fact that she is on fairly high doses of medication and does not seem to really be improving. Discussed with the patient that she should take the medicine as prescribed and that she should take her carbamazepine twice daily as it is prescribed and she agrees to do this. No medication changes were made today. She will continue to follow-up with her outpatient providers and I will see the patient in follow-up while she is in the IOP.
--- NOTE | 2024-01-20 14:56 | BH.MDN_ITS ---
Multi-Disciplinary Note Note 45-min Individual: Time Started:: 11:30 Date: 01/20/24 Purpose of session/treatment goals addressed:: To work on goal #1 of pt's tx plan. Another goal was to discuss ways to increase social support and employment skills. Eye Contact:: Fair Motor Activity:: Appropriate Appearance:: Neat Speech:: Soft Mood:: Depressed Affect:: Constricted (tearful) Thoughts:: Other (ruminations) and No evidence of hallucinations/delusions noted Staff Interventions:: thought challenging, motivational interviewing, CBT techniques, mindfulness skills, strengths perspective, goal setting and other (discussed [employer] and [employer] programs) Client Response:: Pt responded well to session, open to meeting with therapist. Pt was tearful as she is feeling depressed and overwhelmed about needing to make progress while in IOP. Pt shared she has struggled with maintaining a job for a while and her parents are beginning to become frustrated. Pt stated the last job pt quit, her mother was very upset and wanted pt to apologize to her boss. Pt shared her mother told her that if by the time IOP ends pt needs to have a job or she's sending me to the [facility] [place] [facility]. Pt reported she has tried to apply for SSDI and was not approved in the past. Pt feels that part of the reason she was not approve is due to pt not completing the paperwork because my parents told me I don't need it. Pt receptive to alternatives to disability including [employer] and [employer] program that helps people get skills and find employment. Also talked about increasing pt's social support and practicing social interactions that are needed for work at the [employer]. Pt was receptive to this as well. Pt did well during session to challenge her perspective and she benefitted from using a fidget during session which pt shared helped her focus. Pt's goal is to work on accomplishing small tasks around the house and looking into the [employer] for homework. Pt reported an improved mood when she left session. Risks/Concerns:: Pt denies any active SI, plan, or intent. Pt does admit to having passive SI within the last month. Pt reports ability to maintain safety. Progress Toward Goals/Plan:: Pt demonstrating progress with consistent attendance and self-report of benefitting from IOP tx. However, pt's ability to regulate her emotions and negative thought patterns is still impacting pt's ability to function and her mood. Pt reports increased symptoms of anxiety and depression today due to fear that she will not be able to find a job after IOP and then will get kicked out of her home. Pt will continue IOP tx to prevent decompensation, improve daily functioning, and increase distress tolerance skills. Pt also receptive to learning about [employer] and [employer]. Time Stopped:: 12:15
--- NOTE | 2024-01-21 09:05 | BH.SGPN.GN ---
Behaviors/Verbalizations/Mental Status: [] Pt alert and oriented, casually dressed and groomed. Eye contact good. Motor activity appropriate. Speech within normal limits. Affect congruent, mood depressed and agitated. Thoughts linear, logical, no signs of hallucinations or delusions. Reviewed pt?s symptom tracker, no risk for suicidal ideation, plan, or intent 01/20/24 Client Response/Progress/Benefit: []Pt was an active participant in group discussions. Attentive. Able to identify mental health wins including spending time with her brother and [id number] over the weekend before they move out of state. Additional win noted as increase sense of hope regarding employment since being connected with resources for the [employer] program. Notes this is a major source of stress and tension within the relationship with her parents and she is glad to have more sense of direction now. Stressor noted as no medication changes following most recent psychiatry appointment. Explained she had been looking forward to a change as she is uncertain if the current medication regimen is helping to stabilize her mood enough. Benefited from group support, encouragement, and feedback. Will continue in IOP to prevent decompensation, improve daily functioning, and increase distress tolerance skills. Narrative Note: []
--- NOTE | 2024-01-21 10:10 | BH.SGPN.GN ---
Behaviors/Verbalizations/Mental Status: [] Eye contact is good. Motor activity is appropriate. Appearance is casual. Speech is Appropriate. Mood is anxious/irritable. Affect is congruent. Thoughts are linear and logical. No evidence of psychosis. Client Response/Progress/Benefit: [] Pt was an active participate AEB listening attentively to others, participating in group discussions, and taking notes throughout. Participated as the group defined emotion dysregulation and identified ways we can hurt others or sabotage self by not regulating our emotions. Participated with peers to identified ways emotions impact communication which included; shutting down, being irritable/short with others, difficulty focusing/staying on topic, confusion, zone out, and being aggressive or dismissive to others. Participated during group activity. Pt benefited from session by gaining an increased understanding on the importance of managing emotions to improve daily functioning. Will continue IOP tx to improve stabilize mood, increase healthy coping, and improve functioning. Narrative Note: []
--- NOTE | 2024-01-21 11:15 | BH.SGPN.GN ---
Behaviors/Verbalizations/Mental Status: []Pt alert and oriented, casually dressed and appropriately groomed. Eye contact good. Motor activity appropriate. Speech within normal limits. Affect congruent, mood euthymic. Thoughts linear, logical, no signs of hallucinations or delusions. Client Response/Progress/Benefit: [] Pt engaged in session AEB Pt listening attentively to peers and providing input. Attentive during psychoeducation on 4 zones of regulation. Pt able to identify feelings and behaviors for each zone. Pt identified coping skills one can use to support self in each zone. Pt identified most often being in the yellow zone, which she noted can be exhausting. Pt stated skills she wants to practice to help manage her different emotion states include listening to happy music, belly breathing, and journaling. Benefited from increased education on zones of regulation or stages of alertness for emotions and healthy coping skills to use for each zone. Will continue IOP tx to improve distress tolerance, challenge negative thinking, and prevent decompensation.
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
--- NOTE | 2024-01-25 10:15 | BH.SGPN.GN ---
Behaviors/Verbalizations/Mental Status: [] Eye contact is good. Motor activity is appropriate. Appearance is casual. Speech is Appropriate. Mood is depressed/irritable. Affect is congruent. Thoughts are linear and logical. No evidence of psychosis. Client Response/Progress/Benefit: [] Attentive at times during the group discussions however appeared distracted and irritable. Left group several times. Tearful. Briefly spoke with patient after group. Reported that she checked in with her program therapist when she left group and appeared to be in better spirits. Limited benefit from group. Did not engage in discussions, struggled to be attentive, and did not participate in group activity. Agreeable to staying in IOP today and being more active in 3rd group. Limited progress noted today. Will continue in IOP to prevent decompensation, stabilize mood, and improve functioning. Narrative Note: []
--- NOTE | 2024-01-25 20:00 | BH.SGPN.GN ---
Behaviors/Verbalizations/Mental Status: []Pt alert and oriented, casually dressed and groomed. Eye contact good. Motor activity appropriate. Speech within normal limits. Affect congruent, mood depressed. Thoughts linear, logical, no signs of hallucinations or delusions. Client Response/Progress/Benefit: [] Pt responded well to session, taking notes and contributing when prompted. Group discussed the different categories of coping skills which included distraction, emotional release, grounding, self-love, and thought challenging. Pt participated in creating a coping skills ?menu? from the five categories of coping skills. Pt's coping skill menu included: reading, dancing, 5-senses, asking for help, gratitude. Appeared to benefit from increasing repertoire of healthy coping skills. Will continue IOP to promote mood stability, combat distortions, and increase distress tolerance skills. Narrative Note: []
--- NOTE | 2024-01-27 14:22 | BH.TPR ---
Treatment Plan Review Demographics Date of Admission:: 01/04/24 Date of Treatment Plan Review:: 01/27/24 Admitting Diagnoses:: Bipolar disorder, NOS F 31.9; Generalized anxiety disorder; Borderline personality disorder; Rule out PTSD Current Diagnoses:: Bipolar disorder, NOS F 31.9; Generalized anxiety disorder; Borderline personality disorder; Rule out PTSD Patient Status Patient's Response to Treatment:: Pt has responded well to session AEB consistently attending IOP and engaging in both individual and group therapy sessions. Pt contributes at times during group discussions, takes notes, appears to listen to others, and engages in group activities. Pt's scores have increased since admission and when therapist discussed this with pt, she reported she felt very overwhelmed when she filled out the DSM-5. Pt struggles with large groups of people, and there were a lot of IOP participants at that time. Pt reports that even though her scores were higher, she feels like she is benefitting from IOP. Status of Current Problems and Symptoms: Pt continues to endorse symptoms of depression and anxiety that impact her daily functioning. As noted above, pt's scores increased since admission. Pt reports panic, racing thoughts, avoidance, and feeling on edge. Pt's emotions and thoughts are impacted greatly by her environment and daily stressors, so when pt completed the DSM-5 she reported she was feeling overwhelmed. Other stressors currently impacting pt include not having a job, feeling lonely, mood instability, and pressure from her mother. Progress Problem #1: Problem Name:: Depression, passive SI, hopelessness. Status of Goals:: Objective 1- not complete. Pt?s scores for depression have increased since admission (see above) but pt continues to work on applying coping skills. Objective 2- in progress. Pt is working on incorporating healthy distractions and self-talk to prevent pt from engaging in unhelpful coping skills. Team Recommendations:: Team recommends continued goals and objectives to reinforce skills and reduce symptoms. Team recommends pt continue working on combating distortions, being more self-compassionate, and using opposite action. Problem #2: Problem Name:: Anxiety, PTSD, Panic. Status of Goals:: Objective 1- in progress. Pt is working on increasing her distress tolerance skills by using assertive communication, trying to practice more self-care, and through deep breathing strategies. Pt is also working on catching catastrophizing thoughts and using opposite action. Objective 2- not complete. Pt?s scores for anxiety have increase since admission (see above), but pt is learning skills and reports benefitting from group sessions. Team Recommendations:: Treatment team encourages pt to continue working on distress tolerance skills and practicing self-care to reduce stress. Pt also encouraged to set goals and practice calming skills daily.
--- NOTE | 2024-01-28 09:00 | BH.SGPN.GN ---
Behaviors/Verbalizations/Mental Status: [] Eye contact is good. Motor activity is appropriate. Appearance is casual. Speech is Appropriate. Mood is depressed/irritable. Affect is congruent. Thoughts are linear and logical. No evidence of psychosis. Reviewed daily check in sheet and no reports of suicidal ideations or intent. Client Response/Progress/Benefit: [] Pt participated at times during the group discussions. Attentive. Able to identify mental health wins and coping strategies. She was engaged with family through helping with outside work as well as self-care. Able to identify the benefits this had on her mental health. According to pt she is ?terrified? of ?what will happen when IOP is over?. Limited confidence in her mental health and ability to function. Still doesn?t believe that she can function at a job due to mental health and physical pain. Feels frustrated. According to pt her parents are going to ?kick her out? if she doesn?t get a job. Fearful of being homeless. Also reports memory issues which have impacted her ability to retain information in IOP. Limited progress noted. Benefited from group support, encouragement, and feedback. Will continues in IOP to prevent decompensation, stabilize mood, and increase healthy coping. Narrative Note: []
--- NOTE | 2024-01-28 11:15 | BH.SGPN.GN ---
Behaviors/Verbalizations/Mental Status: []Pt alert and oriented, appropriate grooming/appearance. Eye contact good. Motor activity appropriate. Speech within normal limits. Affect congruent, mood euthymic. Thoughts linear, logical, no signs of hallucinations or delusions. Client Response/Progress/Benefit: []Pt was an active participant in group discussions. Attentive during psychoeducation. In small group pt along with peers developed an active plan for their crisis warning signs. Pt identified three crisis warning signs as well as an action plan for each. One crisis warning sign was shutting down. Pt identified coping skills to help with this such as: opposite action, going for a walk, look at accomplishment log, reframe negative thoughts, leave self-messages on notes that remind her it's not helpful to shut down, and go outside for at least 10 minutes. ?Benefited from increased awareness of crisis warning signs and by developing crisis intervention strategies. Will continue in IOP to challenge negative thoughts, promote use of healthy coping skills, and prevent decompensation.
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
--- NOTE | 2024-01-29 09:00 | BH.SGPN.GN ---
Behaviors/Verbalizations/Mental Status: [] Eye contact is good. Motor activity is appropriate. Appearance is casual. Speech is Appropriate. Mood is anxious. Affect is congruent. Thoughts are linear and logical. No evidence of psychosis. Reviewed daily check in sheet and no reports of suicidal ideations or intent. Client Response/Progress/Benefit: [] Pt was an active participant in group discussion. Attentive. Daily symptom tracker notes 2/5 for anxiety. I'm less scared about leaving IOP. Reframing and challenging negative thoughts. Elaborarted on working towards acceptance of her limitations rather than wishing they didn't exist. Also utilizing affirmations and mantras to help minimize negative automatic thoughts. Emotion for today is numb, disconnected, and hopeful. Insight that she has experienced ups and downs this week regarding her mental health, progress, future, and relationships. Progress noted. Benefited from group support, encouragement ,and feedback. Will continue in IOP to prevent decompensation, stabilize mood, and improve functioning. Narrative Note: []
--- NOTE | 2024-01-29 10:10 | BH.SGPN.GN ---
Behaviors/Verbalizations/Mental Status: [] Pt alert and oriented, casually dressed and groomed. Eye contact good. Motor activity appropriate. Speech within normal limits. Affect congruent, mood anxious and dysthymic. Thoughts linear, logical, no signs of hallucinations or delusions. Client Response/Progress/Benefit: [] Pt participated during small group discussions. Attentive during psychoeducation about defense mechanisms. Showed engagement during small group discussions and helped group identify which defense mechanisms were maladaptive, adaptive, or ?somewhere in the camacho.? Noted she struggles with denial, anticipation, and humor defense mechanisms. Pt worked with small group on identifying how each defense mechanism can impact mental health and gave examples. ?Seemed to benefit from gaining awareness about the different defense mechanisms. Pt to continue IOP tx to prevent decompensation, stabilize mood, increase healthy coping, and improve functioning. Narrative Note: []
--- NOTE | 2024-01-29 11:10 | BH.SGPN.GN ---
Behaviors/Verbalizations/Mental Status: []Pt alert and oriented, casually dressed and groomed. Eye contact good. Motor activity appropriate. Speech within normal limits. Affect congruent, mood euthymic. Thoughts linear, logical, no signs of hallucinations or delusions. Client Response/Progress/Benefit: []Pt responded well to session, participating in activity and small group discussion. Group reviewed the rest of the defense mechanisms and discussed how these are adaptive, maladaptive, or somewhere in the camacho. Pt participated in the experiential activity which encouraged pts to draw a castle that portrayed their different defense mechanisms. Pt's defense mechanisms included suppression, anticipation, and denial. Pt shared wanting to work on her suppression. Pt listened to equity research analyst teach different skills to help pt?s cope with or change their defense mechanisms. Pt appeared to benefit from gaining insight to the different defense mechanisms and learning coping skills. Pt will continue IOP tx to prevent decompensation, increase distress tolerance, and improve self-compassion. Narrative Note: []
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
--- NOTE | 2024-02-02 10:15 | BH.SGPN.GN ---
Behaviors/Verbalizations/Mental Status: []Pt alert and oriented, casually dressed and groomed. Eye contact good. Motor activity appropriate. Speech within normal limits. Affect congruent, mood euthymic. Thoughts linear, logical, no signs of hallucinations or delusions. ? Client Response/Progress/Benefit: []Pt responded well to session, attentive and engaged. Pt participated in activity where pts had to guess the celebrity with a known mental health diagnosis and this led to discussion on self-stigma. Group participated in the discussion defining stigma as well as what stigma has kept pt's from doing in their lives. Pt stated mental health stigma has led pt to not maintain employment and inconsistently take medication. Pt admits that she assumes others will not understand and will treat her poorly. Pt worked with peers to begin discussion of what reinforces stigma and this was discussed further in the next group. Pt appeared to benefit from learning about the different types of stigma as well as gaining awareness of how stigma has personally impacted pt. Pt will continue IOP tx to promote mood stability, increase use of healthy coping skills and distress tolerance, and prevent decompensation. Narrative Note: []
--- NOTE | 2024-02-02 11:15 | BH.SGPN.GN ---
Behaviors/Verbalizations/Mental Status: []Pt alert and oriented, casually dressed and groomed. Eye contact good. Motor activity appropriate. Speech within normal limits. Affect congruent, mood euthymic. Thoughts linear, logical, no signs of hallucinations or delusions. Client Response/Progress/Benefit: [] Pt engaged participant AEB participating in the activity, providing input during small group discussion, and listening attentively to others. Pt appeared to connect with discussion in the benefits of addressing mental health stigma which included: improved relationships, increased willingness to seek help, increased happiness, and improved confidence. Group brainstormed strategies to combat social and perceived stigma. Pt shared what they can do to combat self-stigma is to celebrate personal victories and focus on her resilience. Appeared to benefit from increasing awareness of strategies to combat stigma. Will continue IOP tx to increase healthy coping, improve confidence, and prevent decompensation.
--- NOTE | 2024-02-03 10:15 | BH.SGPN.GN ---
Behaviors/Verbalizations/Mental Status: []Pt alert and oriented, casually dressed and groomed. Eye contact good. Motor activity appropriate. Speech within normal limits. Affect full, mood euthymic. Thoughts linear, logical, no signs of hallucinations or delusions. Client Response/Progress/Benefit: []Pt participated in group discussion. Group worked together to identify benefits of healthy relationships which included encouragement, motivation, longer lifespan, connectedness and trust. Group identified factors that lead to unhealthy relationships which included low self-esteem, trauma, use of unhealthy skills, parent's negative relationship growing up, and co-dependence. Pt reports she has entered unhealthy relationships because of her own negative view of self. Benefited from increased insight and awareness of benefits of healthy relationships and factors that contribute to unhealthy relationships. Will continue in IOP to increase consistent use of healthy coping skills, challenge negative thoughts, and increase overall functioning. Narrative Note: []
--- NOTE | 2024-02-03 11:04 | PCM.BH.PN ---
Progress Note Progress Note: History of Present Illness/Interim History: The patient is a 23-year-old female with a 3 of bipolar disorder NOS, depression, anxiety and borderline personality disorder who is seen in follow-up at the [facility] behavioral health IOP. Last saw the patient 2 weeks ago and at that time we discussed the recommendation that she take her carbamazepine twice daily as it has been ordered by her outpatient provider. The patient states that she took it for 1 week twice daily but states that it was not helping so she stopped it. Discussed with the patient that it can take weeks and even months to see if a mood stabilizer is really helping but she states that she knows that the Tegretol does not help twice daily. Patient feels overall that slowly her depression is improving and that her mood reactivity mostly happens when something bad happens or someone criticizes me. She feels she is still learning skills in the groups. She has not had a panic attack for several weeks now. She has not done any self-harm since about 4 months ago. She also denies passive thoughts of , suicidal ideation, plan for suicide, homicidal ideation, hallucinations or delusions. She still has some dissociation when triggered by past trauma triggers. Current Psychiatric Medications: [] Prozac 40 mg p.o. daily (dose increased 5 weeks ago); Abilify 30 mg p.o. daily; carbamazepine 200 mg p.o. daily (patient refuses to take it twice daily as ordered by outpatient provider). Mental Status Examination: [] The patient is a 23-year-old female who is casually dressed and groomed with good hygiene and appears normal for stated age. She is ambulatory with a normal gait and has no psychomotor agitation or retardation. Speech is normal rate and rhythm and fluent with no pressure and eye contact is good. Mood is mildly depressed. Affect is full and normal. Thought process is goal-directed and organized. Thought content: There is no evidence of passive thoughts of , suicidal ideation, plan for suicide, homicidal ideation, hallucinations or delusions. Reality testing is intact. Intelligence is above average. Insight is limited but improving. Judgment is intact. Impulsivity is high. Diagnoses: [] 1. Bipolar disorder, NOS 2. Generalized anxiety disorder 3. Borderline personality disorder 4. PTSD 5. Primary support and work issues Plan: [] The patient will continue the IOP in behavioral health at [facility] as the structure, support, education and group therapy will hopefully prevent worsening of the patient's symptoms. She felt safe during the interview and if it anytime she does not feel safe she agrees to let us know or go to the emergency room. Recommended that the patient receive trauma therapy in the near future and she states that she has discussed this with her outpatient providers. She will continue to follow-up with her outpatient providers and I will see the patient in follow-up while she is in the IOP
--- NOTE | 2024-02-03 11:15 | BH.SGPN.GN ---
Behaviors/Verbalizations/Mental Status: [] Pt alert and oriented, casually dressed and groomed. Eye contact fair. Motor activity appropriate. Speech within normal limits. Affect congruent, mood euthymic, Thoughts linear, logical, no signs of hallucinations or delusions Client Response/Progress/Benefit: [] Client responded well to session, engaged and taking notes throughout. Worked with group to connect components of the experiential activity with characteristics of healthy and unhealthy relationships. Attentive during psychoeducation about characteristics of healthy, unhealthy, and abusive relationships. Client reported she would like to continue to improve with communication, honesty, and trust in relationship. Appeared to benefit from identifying current healthy relationship attributes and an area client wants to work on to build healthier relationships. Client to continue IOP to promote use of healthy coping skills, improve confidence, and prevent decompensation.
--- NOTE | 2024-02-03 14:41 | BH.MDN ---
Multi-Disciplinary Note Note 30-min Individual: Time Started:: 09:10 Date: 02/03/24 Purpose of session/treatment goals addressed:: To work on goal #2 of pt's tx plan by creating a crisis/anxiety plan. Eye Contact:: Good Motor Activity:: Appropriate Appearance:: Casual Speech:: Appropriate Mood:: Euthymic Affect:: Full Thoughts:: Linear, Logical and No evidence of hallucinations/delusions noted Staff Interventions:: thought challenging, CBT techniques, mindfulness skills, strengths perspective, goal setting and other (completed an anxiety/crisis prevention plan) Client Response:: Pt responded well to session, open to meeting with therapist. Pt shared she will be going away this weekend to help her brother and his move, so pt wants to be prepared for stress. Pt feels she is doing better with her anxiety, but pt reports she still shuts down when she feels overwhelmed or anxious and pt wants to work on this. Pt receptive to setting a goal of taking on a more active leadership role while in IOP group, especially on days there are activities. Pt liked this idea and plans to try this next group. Pt also receptive to creating an anxiety/ crisis plan that included triggers, warning signs, peak anxiety symptoms, recovery, and maintenance. Pt also identified what her preventative coping skills are and her recovery coping skills. Pt's triggers included; getting feedback or criticism, feeling overwhelmed, and people yelling. Warning signs included; urges to shut down/escape, crying, and rapid hear rate. Pt stated when she notices her triggers/warning signs pt can use her calming skills and practice self-talk. Pt has also been journaling more and this is helpful as well. Pt receptive to sharing her crisis/anxiety plan with supports and practicing these coping skills over the weekend. Risks/Concerns:: Pt denies any suicidal ideations, plan, or intent. Pt denies any thoughts of . Progress Toward Goals/Plan:: Pt is demonstrating progress AEB her consistent attendance and engagement in groups. Pt's mood stability is becoming more consistent as this is the second session in a row that pt has reported feeling positive and motivated. Pt continues to endorse anxiety and difficulty expressing her needs when anxious, but pt is working on this in group and outside of IOP. Pt will continue IOP tx to prevent decompensation, improve daily functioning, and increase self-confidence. Time Stopped:: :45
--- NOTE | 2024-02-04 09:00 | BH.SGPN.GN ---
Behaviors/Verbalizations/Mental Status: []Pt alert and oriented, neatly dressed and groomed. Eye contact good. Motor activity appropriate. Speech within normal limits. Affect congruent, mood hopeful.. Thoughts linear, logical, no signs of hallucinations or delusions. Reviewed pt?s symptom tracker, no risk for suicidal ideation, plan, or intent 02/04/24 Client Response/Progress/Benefit: []Pt was an active participant in group discussions. Attentive. Able to identify mental health wins including doing some pushups yesterday which is one of pt's goals and getting to meet up with a friend that pt has not seen in a long time. Pt's stressor today is she is having pain in her leg a lot lately. Pt stated she is feeling energized this morning. Pt receptive to feedback from peers which pt reported was helpful. Progress noted. Benefited from group support, encouragement, and feedback. Will continue in IOP to promote mood stability, increase distress tolerance, and improve daily functioning. Narrative Note: []
--- NOTE | 2024-02-04 10:10 | BH.SGPN.GN ---
Behaviors/Verbalizations/Mental Status: [] Eye contact is good. Motor activity is appropriate. Appearance is casual. Speech is Appropriate. Mood is content. Affect is congruent. Thoughts are linear and logical. No evidence of psychosis. Client Response/Progress/Benefit: [] Pt receptive of session, actively engaged throughout AEB taking notes, providing input, and contributing in small group discussion. Appeared to connect with group topic of automatic thoughts and cognitive distortions, as well as the impact of thought patterns on mental health, coping behaviors, and relationships. This particular group is very heavy on psychoeducation and pt appeared to connect with distortions and how they can impact functioning. Identified struggling with Overgeneralization distortion. Pt appeared to benefit from gaining insight on distorted thinking patterns and how this impacts overall mental health. Will continue IOP to stabilize mood, improve ability to function, and increase healthy thought patterns. Narrative Note: []
--- NOTE | 2024-02-04 11:10 | BH.SGPN.GN ---
Behaviors/Verbalizations/Mental Status: [] Eye contact is good. Motor activity is appropriate. Appearance is casual. Speech is Appropriate. Mood is content. Affect is congruent. Thoughts are linear and logical. No evidence of psychosis. Client Response/Progress/Benefit: []Pt was an active participant during group discussion. Pt was placed in a smaller group and participated in combatting example distortions with peers. Pt was engaged in the smaller group, participated in group interactions to brainstorm answers, and appeared to be comprehending cognitive distortions. Pt stated could connect with many of the distortions covered in group. Pt stated they have learned that everything has an effect and it's like a cycle with thinking. Benefited from gaining further insight and awareness of cognitive distortions as well as practicing ways to reframe and challenge thoughts. Will continue in IOP tx to increase healthy thinking patterns, increase functioning, and challenge distortions. Narrative Note: []
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
--- NOTE | 2024-02-09 10:15 | BH.SGPN.GN ---
Behaviors/Verbalizations/Mental Status: [] Eye contact is good. Motor activity is appropriate. Appearance is casual. Speech is Appropriate. Mood is anxious. Affect is congruent. Thoughts are linear and logical. No evidence of psychosis. Client Response/Progress/Benefit: [] Pt was an engaged participant AEB listening attentively to others, taking notes, and providing feedback in small group discussions. Attentive during psychoeducation AEB by note taking and providing some input. Pt worked along with peers in small groups to define inappropriate guilt and appropriate guilt. Interactive discussion on examples of both inappropriate and appropriate guilt. Worked well in small group with peers where they identified example of inappropriate vs appropriate guilt and the impact inappropriate guilt can have on MH. Benefited from increased awareness of guilt and the differences between appropriate and inappropriate guilt. Plan is to continue in IOP to prevent decompensation, increase healthy coping, stabilize mood, and improve functioning. Narrative Note: []
--- NOTE | 2024-02-09 14:28 | BH.MDN_ITS ---
Multi-Disciplinary Note Note 30-min Individual: Time Started:: 11:38 Date: 02/09/24 Purpose of session/treatment goals addressed:: To work on establishing aftercare plan, challenging distortions, and increasing self-confidence. Eye Contact:: Good Motor Activity:: Appropriate Appearance:: Neat Speech:: Appropriate Mood:: Euthymic Affect:: Full Thoughts:: Linear, Logical and No evidence of hallucinations/delusions noted Staff Interventions:: thought challenging, motivational interviewing, CBT techniques, discharge planning (pt was given resources for therapy and scheduled with [facility].), strengths perspective and goal setting Client Response:: Pt responded well to session, open to meeting with therapist. Pt reports feeling pretty alright and described her mood as being more stable in general. Pt shared this weekend she helped move her brother and her [id number] and they had a good time. Pt was sad, but she is also happy for them. Pt stated there was some stress this weekend, but pt feels that she managed it well by using self-talk and calming skills. Pt has completed disability paperwork and she is feeling more confident in this choice. Pt shared she does not feel capable to return to work currently, even though she is feeling better. Pt does want to eventually get back into the workforce and pt hopes that having some assistance will allow pt to put more energy into finding more sustainable jobs that pt can see herself doing long-term. Discussed pt reminding herself of her strengths and pt highlighted recent moments in IOP when pt felt she was using her strengths. Pt receptive to establishing outpatient psychiatry and receptive to going to [facility]. Pt was able to set up an appointment for 03/01/24. Risks/Concerns:: Pt denies any active suicidal ideations, plan, or intent. Progress Toward Goals/Plan:: Pt is responding well to tx AEB pt's report of improved mood over the past two weeks and her report of consistently using coping skills. Pt shared she is feeling more in control of her anxiety and being able to challenge her thoughts more effectively. Pt is not established with psychiatry, so pt was open to getting an appointment with [facility] today. Pt also wants a trauma-focused therapist and she was given options for that as well. Pt will continue IOP tx to promote mood stability, increase distress tolerance, and improve self-confidence. Time Stopped:: 12:05
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
--- NOTE | 2024-02-10 11:15 | BH.SGPN.GN ---
Behaviors/Verbalizations/Mental Status: []Client alert and oriented, casually dressed and groomed. Eye contact good. Motor activity appropriate. Speech within normal limits. Affect congruent, mood euthymic. Thoughts linear, logical, no signs of hallucinations or delusions. Client Response/Progress/Benefit: []Pt participated throughout AEB contributing to discussion, providing personal examples, and taking notes. Pt provided input during discussion on the types of support our supports can provide. Pt able to identify current support system and barriers that get in the way of using supports. Pt reported after identifying what type of supports pt receives, pt gained awareness that pt could benefit from more tangible support. Pt recognizes that she struggles with both asking for and accepting help, but she wants to get better at ?trusting? and building vulnerability. Pt seemed to benefit from identifying the type of support pt needs to work on improving. Pt recommended to continue IOP tx to promote mood stability, increase self-compassion, and combat distortions. Narrative Note: []
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
--- NOTE | 2024-02-11 10:07 | BH.SGPN.GN ---
Behaviors/Verbalizations/Mental Status: [] Eye contact is good. Motor activity is appropriate. Appearance is casual. Speech is Appropriate. Mood is content. Affect is congruent. Thoughts are linear and logical. No evidence of psychosis. Client Response/Progress/Benefit: [] Pt receptive to session AEB contributing to group discussion, as well as listening attentively to others, and taking notes. Worked with group to brainstorm the positive and negative aspects of stress on physical and mental health as well as the impact of distress on performance, relationships, and mental health. Pt shared their top stressors to be: finances, employment, and mental health. Shared when feeling overwhelmed with stress pt tends to shut down, distract, and avoid. Benefited from increased awareness of positive and negative stress as well as how stress impact individuals. Will continue in IOP to decrease anxious symptoms, increase mood stability, and prevent decompensation. Narrative Note: []
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
--- NOTE | 2024-02-16 10:15 | BH.SGPN.GN ---
Behaviors/Verbalizations/Mental Status: [] Eye contact is good. Motor activity is appropriate. Appearance is casual. Speech is Appropriate. Mood is anxious and dysthymic. Affect is congruent. Thoughts are linear and logical. No evidence of psychosis. Client Response/Progress/Benefit: [] Pt was an active participant in group discussions. Attentive during psychoeducation on the 4 communication styles (Passive, Passive-Aggressive, Aggressive, and Assertive) and the obstacles to effective communication. ?Self-identified a barrier they personally struggle with as shutting down or communicating with behaviors preventing them from communicating when they need to or want to. Contributed during interactive discussion on the benefits of communicating effectively which included; having one's needs met, decreases stress and uncertainty, improved relationships, healthier boundaries, and avoids unnecessary conflict. Worked well with peers to identify the benefits and disadvantages to the different communication styles. Benefited from increased understanding of communication styles and how these can impact effective communication. Will continue in IOP tx to prevent decompensation, maintain mood stability and continue to promote application of healthy coping skills. Narrative Note: []
--- NOTE | 2024-02-16 11:10 | BH.SGPN.GN ---
Behaviors/Verbalizations/Mental Status: []Pt alert and oriented, casually dressed. Eye contact fair. Motor activity appropriate. Speech within normal limits. Affect congruent, mood dysthymic. Thoughts linear, logical, no signs of hallucinations or delusions. Client Response/Progress/Benefit: [] Pt responded well to session AEB Pt listening attentively to others and providing input during group discussion on the pay offs and costs of the different communication styles. Pt able to connect how current communication style impacts mental health. Connected with peers? comments about importance of using assertive communication. Pt did well with practicing being assertive in the group activity and worked with group to identify potential skills for improving communication skills. Pt stated she will practice being assertive by setting boundaries/limits for herself and start saying no to others. Pt reported she doesn't want to be a doormat to others anymore. Pt seemed to benefit from increasing awareness of healthy strategies to improve communication. Will continue IOP tx to challenge negative/distorted thoughts, increase healthy coping sklils, and prevent decompensation.
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
== END 2024-02-18 23:59 ==
LOC: BHIOP 08:04
PROVIDERS: PCP Family Medicine; Referring Provider Psychiatry & Neurology Psychiatry; Visit Provider Psychiatry & Neurology Psychiatry
DX: F31.9 Bipolar disorder, unspecified (principal); F41.1 Generalized anxiety disorder; F60.3 Borderline personality disorder; F43.10 Post-traumatic stress disorder, unspecified; Z79.899 Other long term (current) drug therapy
CPT/HCPCS: S9480; 90832; 90834; 90853

== ENCOUNTER 2024-02-19 07:58 | Outpatient (RCR) | payer BC, SELFPAY ==
[2024-02-19 00:47] VITALS: BP 143/86; PULSE 73
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
--- NOTE | 2024-02-23 10:15 | BH.SGPN.GN ---
Behaviors/Verbalizations/Mental Status: [] Eye contact is good. Motor activity is appropriate. Appearance is casual. Speech is Appropriate. Mood is euthymic. Affect is congruent. Thoughts are linear and logical. No evidence of psychosis. Client Response/Progress/Benefit: [] Pt was an active participant during interactive group discussions. Along with peers contributed to interactive discussion on defining what a boundary is in mental health. Pt along with peers identified challenges to setting boundaries which included; people pleasing, fear of rejection, fear of loss, fear people won't respect the boundary, etc. Pt along with peers identified the benefits to setting boundaries such as reduces assumptions, can reduce stress, improve communication/relationships, and can keep us safe. Attentive during psychoeducation on types of boundaries (rigid, porous, flexible). Pt benefited from increased awareness and insight on the importance/benefit to setting health boundaries. Will continue in IOP to challenge distortions, increase consistent use of healthy coping skills, and prevent decompensation.
--- NOTE | 2024-02-23 11:20 | BH.SGPN.GN ---
Behaviors/Verbalizations/Mental Status: []Eye contact is good. Motor activity is appropriate. Appearance is casual. Speech is Appropriate. Mood is dysthymic. Affect is congruent. Thoughts are linear and logical. No evidence of psychosis. Client Response/Progress/Benefit: []Pt responded well to session AEB listening attentively to peers and taking notes throughout. Reports connecting with porous boundaries, especially with her family. Participated in group discussion brainstorming various strategies for improving healthy boundary setting. Pt reports wanting to improve her comfort levels with saying no at times. Seemed to benefit from increased awareness of how different boundary styles can impact mental health. Will continue IOP tx to prevent decompensation, improve daily functioning, and increase mood stability. Narrative Note: []
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
--- NOTE | 2024-02-25 10:15 | BH.SGPN.GN ---
Behaviors/Verbalizations/Mental Status: []Client alert and oriented, casually dressed and groomed. Eye contact good. Motor activity appropriate. Speech within normal limits. Affect congruent, mood euthymic. Thoughts linear, logical, no signs of hallucinations or delusions. Client Response/Progress/Benefit: [] Pt responded well to session, contributing to discussion and engaged during the activity. Group identified the benefits of change which included: better mental health, increased confidence, and improved relationships. Worked with the group to identify barriers to change, which included: uncomfortable emotions such as anxiety, lack of motivation, fear of failure, negative self-talk, shutting down, and change not happening fast enough. Pt participated along with group in activity where they identified and discussed the emotions related to change. Pt discussed how even difficult emotions can push you to make meaningful change. Benefited from increased awareness and understanding of emotions, benefits, and barriers related to change. Will continue IOP tx to promote use of healthy coping skills, increase self-confidence, and improve daily functioning. Narrative Note: []
--- NOTE | 2024-02-25 11:15 | BH.SGPN.GN ---
Behaviors/Verbalizations/Mental Status: []Client alert and oriented, casually dressed and groomed. Eye contact good. Motor activity appropriate. Speech within normal limits. Affect congruent, mood euthymic. Thoughts linear, logical, no signs of hallucinations or delusions. Client Response/Progress/Benefit: [] Pt responded well to session, attentive throughout. Did well to actively listen and contributed when prompted as group worked to process activity. Pt worked with group to relate the strategies used to overcome barriers in the activity to managing change in own life. Pt identified a change they would like to make is ?become more accepting of my past.? Pt identified currently being in the contemplation/preparation stage for this change. Pt said exploring trauma therapy can help pt get to the next stage. Appeared to benefit from identifying a change they want and how to progress. Pt will continue IOP tx to promote use of healthy coping skills, improve daily functioning, and reduce self-sabotaging behaviors. Narrative Note: []
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
--- NOTE | 2024-02-29 10:15 | BH.SGPN.GN ---
Behaviors/Verbalizations/Mental Status: []Client alert and oriented, casually dressed and groomed. Eye contact good. Motor activity appropriate. Speech within normal limits. Affect congruent, mood content. Thoughts linear, logical, no signs of hallucinations or delusions. Client Response/Progress/Benefit: [] Pt responded well to session AEB actively participating throughout group. Pt was attentive throughout group activity discussing famous individuals and how they overcame failure to be successful. Pt helped group identify how fear of failure can impact mental health and relationships. Pt personally identified it leads to pt to give up. Participated in experiential activity, working with group members to problem solve. Appeared to benefit from increased knowledge of what causes fear of failure and how it impacts people. Will continue IOP tx to prevent decompensation, maintain mood stability, and encourage continued boundary setting. Narrative Note: []
--- NOTE | 2024-02-29 11:15 | BH.SGPN.GN ---
Behaviors/Verbalizations/Mental Status: []Pt alert and oriented, neatly dressed and groomed. Eye contact good. Motor activity appropriate. Speech within normal limits. Affect congruent, mood euthymic and anxious. Thoughts linear, logical, no signs of hallucinations or delusions. Client Response/Progress/Benefit: [] Pt responded well to session, engaged in the experiential activity and attentive throughout group processing. Pt reported fear of failure has kept Pt from working, leaving toxic relationships, and being present. Pt completed fear of failure worksheet and was able to identify thoughts and behaviors that reinforce personal fear of failure including not setting boundaries, avoidance, and maintaining toxic relationships. Pt participated in small group discussion regarding strategies to overcome fear of failure. Identified wanting to work on acceptance that setbacks will occur and keeping track of her wins. Appeared to benefit from increased knowledge of strategies to combat fear of failure and gaining self-awareness. Pt will continue IOP tx to improve mood stability, reinforce healthy coping skills, and establish aftercare. Narrative Note: []
--- NOTE | 2024-03-04 10:33 | BH.IGGP_ITS ---
Aftercare Plan Demographics Treatment End Date:: 03/04/24 Psychiatrist:: Jaylin Calvin Psychiatrist Office #:: [phone] [facility]/IOP Therapist:: Giulia Smith Therapist Phone #:: [phone] Medications Home Medications aripiprazole 30 mg tablet 30 mg PO DAILY 03/07/20 carbamazepine 200 mg tablet (Epitol) 200 mg PO BID 01/06/24 escitalopram oxalate 10 mg tablet 10 mg PO QDAY #30 tabs 03/01/24 fluoxetine 20 mg capsule (Prozac) 20 mg PO DAILY #14 caps 03/01/24 Plan Details Progress/Aftercare Plan Details:: Mala has responded well to treatment as evidenced by Mala consistently attending IOP sessions and her reduction of DSM-5 scores since admission. Mala was always attentive and receptive to learning during group and individual sessions. Mala actively applied coping skills outside of IOP and reports overall her mood is improved and she is functioning better than she was several months ago. Mala?s overall symptom reduction is 19% since treatment plan review with anger decreasing by 100%, depression decreasing by 20%, and anxiety decreasing by 17%. Mala has increased self-compassion and faced many hard things. Most importantly, Mala has become more capable of managing her anxiety, depression, and stressors. Strategies for Success:: 1. Opposite action! Continue to break that cycle of anxiety, guilt, and depression by not letting emotions be the only drivers of your bus. 2. Remember that thoughts are thoughts NOT facts! You have power in if you give thoughts the time of day or not. 3. self-care! You deserve to take time for you and you also deserve to face the not so fun self-care like not looking at certain media and advocating for yourself 4. Self-compassion! You are human and you will make a mistake?BUT that doesn?t mean you are a failure or not good enough. Remember there are no bad parts! 5. Continue to practice acceptance and remember acceptance means loving this version of you 6. Practice positive self-talk and keep track of your wins. 7. Remember progress isn?t linear! You may have a setback or bump in the road, but that doesn?t mean you?ve lost all progress. 8. self-reflection and self-awareness. 9. Be understanding with yourself and try to see the whole picture, not just the snapshot. 10. Live in the jang!! Appointments Appointments/Referrals to Other Services:: 1. Follow up with Hillary Beard for psychiatry. Last appointment was 03/01/24. 2. Follow up with Angélica at [facility]. Next appointment is on 03/09/24. 3. IOP aftercare starting on 03/10/24 from 2:00-3:30pm.
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
--- NOTE | 2024-03-04 10:50 | BH.MDN_ITS ---
Multi-Disciplinary Note Note 30-min Individual: Time Started:: 09:20 Date: 03/04/24 Purpose of session/treatment goals addressed:: To address current stressors and discuss strategies to help cope with these stressors. Another goal was to discuss discharge and aftercare. Eye Contact:: Good Motor Activity:: Appropriate Appearance:: Neat Speech:: Appropriate Mood:: Euthymic Affect:: Full Thoughts:: Linear, Logical and No evidence of hallucinations/delusions noted Staff Interventions:: CBT techniques, discharge planning, strengths perspective, reviewed DSM-5 and other (reviewed maintenance plan.) Client Response:: Pt responded well to session, open to meeting with therapist. Pt reports she is feeling ready and sad to be discharging today. Pt reflected on her progress and she shared positive changes like blocking her ex- boyfriend, making her bed in the morning, not isolating, increased motivation, less avoidance, and better ability to regulate stress. Pt stated she is looking forward to continuing therapy to work through her trauma. Pt shared she has been journaling consistently and she has been able to use her coping skills almost without thinking. When pt started IOP tx she shared one of her biggest barriers was she knew coping skills, but she was not applying them. Pt expressed feeling proud of herself and that her mother has also been more understanding of her mental health which has been helpful too. Risks/Concerns:: Pt denies any suicidal ideations, plan, or intent. Pt denies any thoughts of . Progress Toward Goals/Plan:: Pt will discharge from IOP tx today as pt has accomplished her tx goals and no longer meets criteria for IOP level of care. Pt has outpatient counseling at [facility] and psychiatry services at [facility]. Pt will begin IOP aftercare group next week. Time Stopped:: 09:50
--- NOTE | 2024-03-04 11:15 | BH.SGPN.GN ---
Behaviors/Verbalizations/Mental Status: [] Client alert and oriented, casually dressed and groomed. Eye contact good. Motor activity appropriate. Speech within normal limits. Affect congruent, mood content. Thoughts linear, logical, no signs of hallucinations or delusions. Client Response/Progress/Benefit: []Client was an active participant throughout AEB contributing to group discussion and taking notes. Client provided input during small group discussion on strategies to combat each factor maintaining adverse nutritional cycles. Worked with group to identify ways to foster more mindful nutritional choices. Each group participant identified one small step they could take today to begin establishing mental wellness promoting nutritional choices. Client shared plans to practice more mindful eating and portion control without restricting herself.?Appeared to benefit from gaining insight into mental wellness centered nutrition and identifying personal steps client can take to support own nutritional psychology. Recommended continued outpatient tx as pt will be discharging from IOP today. Narrative Note: []
== END 2024-03-04 12:14 | disposition home or self-care (01) ==
LOC: BHIOP 07:58
PROVIDERS: PCP Family Medicine; Referring Provider Psychiatry & Neurology Psychiatry; Visit Provider Psychiatry & Neurology Psychiatry
DX: F31.9 Bipolar disorder, unspecified (principal); F41.1 Generalized anxiety disorder; F60.3 Borderline personality disorder
CPT/HCPCS: S9480; 90832; 90837; 90853

== ENCOUNTER 2024-03-10 14:09 | Outpatient (RCR) | payer BC, SELFPAY ==
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
--- NOTE | 2024-03-10 14:10 | BH.COMM ---
Communication Note Communication with Client Communication Note: Patient completed IOP and presents today to start relapse prevention group which meets once weekly (1.5 hours) for 8 weeks. Case discussed with Dr. Royal with plan to admit with dx of F31.9
--- NOTE | 2024-03-10 14:38 | BH.MTP ---
Master Treatment Plan Patient Information Program Physician:: Dr. Jaylin Calvin Primary Therapist:: Giulia TRAN Psychiatric Diagnoses Psychiatric Diagnoses:: Bipolar disorder, NOS F 31.9; Generalized anxiety disorder; Borderline personality disorder; Rule out PTSD Diagnosis Code(s):: F 31.9 Estimated LOS Estimated LOS (in weeks):: 8 Problem/Goal #1 Problem/Goal #1 Stated Goal:: client will maintain or see a reduction in symptoms AEB client score on the DSM 5 cross-cutting measure and improve client's daily functioning. Objectives Objective #1: Stated Objective: Client will continue to consistently apply healthy coping skills to maintain progress made in IOP tx. Interventions: Through group therapy, client will review warning signs and triggers as well as healthy coping skills learned in IOP tx to successfully maintain gains while transitioning into outpatient therapy. Discharge Criteria: Client will have accomplished this goal when client's score on the DSM-5 cross-cutting measure has maintained or reduced over a 8 week period. Target Date: 05/05/24 Review Date: 04/14/24 Status: open Objective #2: Stated Objective: Client will learn and utilize 2-3 maintenance strategies to prevent decompensation from original IOP DSM-5 scores. Interventions: Through group therapy, client will be provided with education on healthy maintenance behaviors, relapse prevention techniques, and healthy coping strategies. Discharge Criteria: Client will have accomplished this goal when can report using at least 2 maintenance skills to prevent decompensation compared to original IOP DSM-5 scores Target Date: 05/05/24 Review Date: 04/14/24 Status: open
== END 2024-03-19 23:59 ==
LOC: BHOG 14:09
PROVIDERS: PCP Family Medicine; Referring Provider Psychiatry & Neurology Psychiatry; Visit Provider Psychiatry & Neurology Psychiatry
DX: F31.9 Bipolar disorder, unspecified (principal); F41.1 Generalized anxiety disorder; F60.3 Borderline personality disorder; Z79.899 Other long term (current) drug therapy
CPT/HCPCS: 90853

== ENCOUNTER 2024-03-21 14:04 | Outpatient (RCR) | payer BC, SELFPAY ==
--- NOTE | 2024-03-24 14:00 | BH.SGPN.GN ---
Behaviors/Verbalizations/Mental Status: []Pt alert and oriented, neatly dressed and groomed. Eye contact good. Motor activity appropriate. Speech within normal limits. Affect congruent, mood euthymic. Thoughts linear, logical, no signs of hallucinations or delusions. Client Response/Progress/Benefit: [] Pt responded well to session, attentive and providing input. Pt shared she has been meeting consistently with her therapist, but she has not been consistent with her medications. Pt reports using setting boundaries, deep breathing, and journaling to cope with stressors. With peers, pt discussed things that would sabotage one's mental health wellness and added it to the garden metaphor. Pt identified things pt personally does to sabotage as having poor boundaries by letting in toxic people and not challenging her negative thoughts. Pt attentive during psychoeducation on ways to reduce self-sabotage and pt selected making a list of her accomplishments as the skill pt is going to use. Pt appeared to benefit from learning skills and gaining awareness of self-sabotaging behaviors. Pt will continue IOP aftercare to promote utilization of healthy coping skills to improve mood stability. Narrative Note: []
--- NOTE | 2024-03-31 14:00 | BH.SGPN.GN ---
Behaviors/Verbalizations/Mental Status: []Pt alert and oriented, casually dressed and groomed. Eye contact good. Motor activity appropriate. Speech within normal limits. Affect congruent, mood euthymic. Thoughts linear, logical, no signs of hallucinations or delusions. Client Response/Progress/Benefit: []Pt receptive of session, engaged throughout. Pt shared they have met with their outpatient provider since last session and are excited to be working with a new psychiatrist and counselor. Pt has been taking medications consistently and reports utilizing healthy coping skills outside of aftercare. These skills included: communicating with supports, checking in with herself, and positive affirmations. ?Receptive of discussion on sitting with the uncomfortable and emotional urges. Pt contributed to the discussion of distress tolerance and how building distress tolerance can help improve mood stability and resilience. Pt wants to keep building distress tolerance by not acting on urges to put the radio volume on an even number. Pt seemed to benefit from support from peers and increasing understanding of distress tolerance. Will continue aftercare to reinforce healthy coping skills and improve daily functioning. Narrative Note: []
--- NOTE | 2024-04-07 15:09 | BH.MTP_ITS ---
Treatment Plan Review Demographics Date of Admission:: 03/10/24 Date of Treatment Plan Review:: 04/07/24 Admitting Diagnoses:: Bipolar disorder, NOS F 31.9; Generalized anxiety disorder; Borderline personality disorder; Rule out PTSD Current Diagnoses:: Bipolar disorder, NOS F 31.9; Generalized anxiety disorder; Borderline personality disorder; Rule out PTSD Patient Status Patient's Response to Treatment:: Pt continues to respond well to treatment AEB pt's consistent attendance, ongoing attentiveness and engagement in group discussions, and continued reporting use of skills outside treatment enviro nment. Pt's DSM-5 scores have slightly increased, but pt reports this is due to external stressors and she still feels like she is coping well. Status of Current Problems and Symptoms: Pt reports ongoing depression, anxiety, and PTSD symptoms. Pt reports these symptoms are not as severe as when she was in IOP, but pt has been doing a lot of trauma work in individual counseling which has temporarily increased symptoms. Progress Problem #1: Problem Name:: Pt will maintain or see a reduction in sx Status of Goals:: Obj 1 - partially complete with ongoing work encouraged. Pt's DSM-5 scores for depression and anxiety are back to their original scores from IOP admission. Pt's DSM-5 score for anger has decreased by 33% compared to admission. Pt acknowledges this is due to recent trauma therapy and the holidays. Obj 2 - complete with ongoing work encouraged. Pt had been reporting using opposite action, journaling, and positive self-talk. Team Recommendations:: Recommended client continue IOP aftercare group in addition to attending regular outpatient counseling in order to maintain gains. Pt also recommended to continue working on self-compassion, practice self-care, and setting realistic goals.
--- NOTE | 2024-04-14 14:00 | BH.SGPN.GN ---
Behaviors/Verbalizations/Mental Status: []Client alert and oriented, casually dressed and groomed. Eye contact good. Motor activity appropriate. Speech within normal limits. Affect congruent, mood euthymic. Thoughts linear, logical, no signs of hallucinations or delusions. Client Response/Progress/Benefit: [] Pt responded well to session AEB sharing and listening attentively to others. Pt did not have therapy or psychiatry appointments this week and pt admits to taking her medication ?sometimes.? Pt stated using deep breathing, affirmations, and self-care as primary coping skills used this past week. Pt participated in group discussion defining vulnerability, how and why we avoid it, and the benefits. Pt was an active participant and provided personal examples of being vulnerable and the positive things that came with this. Pt stated that pt would like to work on being vulnerable this week by practicing ?free writing? instead of planning out what she will write. Will continue aftercare treatment to reinforce healthy coping skills and promote gains. Narrative Note: []
== END 2024-04-19 23:59 ==
LOC: BHOG 14:04
PROVIDERS: PCP Family Medicine; Referring Provider Psychiatry & Neurology Psychiatry; Visit Provider Psychiatry & Neurology Psychiatry
DX: F31.9 Bipolar disorder, unspecified (principal); F41.1 Generalized anxiety disorder; F60.3 Borderline personality disorder; Z79.899 Other long term (current) drug therapy
CPT/HCPCS: 90853

== ENCOUNTER 2024-04-21 07:10 | Outpatient (RCR) | payer BC, SELFPAY ==
--- NOTE | 2024-04-21 14:00 | BH.SGPN.GN ---
Behaviors/Verbalizations/Mental Status: []Pt alert and oriented, casually dressed and groomed. Eye contact fair. Motor activity appropriate. Speech within normal limits. Affect constricted, mood depressed. Thoughts linear, logical, no signs of hallucinations or delusions. Client Response/Progress/Benefit: []Pt receptive of session, engaged throughout. Pt has been struggling with taking her medications consistently and was receptive to feedback and ideas from group on ways to improve follow through. Pt reported she has upcoming appointments for both counseling and psychiatry. Pt shared she is using journaling and positive affirmations as her healthy coping skills. Stated she did not complete homework because she forgot. Receptive of discussion on ?Chapters of my life? poem. Pt contributed to the discussion of the different chapters one may go through and how they connect with current mental health progress. Pt completed self-reflection on what chapter she believes she is in. In processing of situation that happened during group check-in with another group member client stated she felt triggered because she does not like being around people that are coming off as aggressive. This policy writer sales helped pt and rest of group process thoughts and feelings about the situation because it did change group dynamics at the beginning of group. Pt seemed to benefit from support from peers and increasing understanding of ?Chapters of my life?. Will continue IOP aftercare to increase consistent use of healthy coping skills and prevent decompensation.
--- NOTE | 2024-04-28 14:00 | BH.SGPN.GN ---
= Behaviors/Verbalizations/Mental Status: []Pt alert and oriented, casually dressed and groomed. Eye contact good. Motor activity appropriate. Speech within normal limits. Affect congruent, mood excitable. Thoughts linear, logical, no signs of hallucinations or delusions. Client Response/Progress/Benefit: []Pt responded well to session AEB sharing and listening attentively to others. Pt has scheduled outpatient mental health appointments for weekly counseling and regular med management and reports mostly consistent medication compliance. Pt reports using skills of healthy distraction, depp breathing, and writing to maintain mood stability. Pt participated in group discussion defining affirmations and why they are important. Pt provided insight throughout clinician?s presentation of tips for writing personal affirmations and wrote their own affirmations, including ?I am working on valuing myself and my opinions?, ?I have the power to improve my mood? and ?I can do hard things?. Pt appeared to benefit from increased knowledge of affirmation writing skills and creating their own affirmation statements to remind themselves of outside tx environment. Will continue aftercare tx to promote consistent mental health maintenance and prevent decompensation. Narrative Note: []
--- NOTE | 2024-05-05 14:00 | BH.SGPN.GN ---
Behaviors/Verbalizations/Mental Status: []Client alert and oriented, neatly dressed and groomed. Eye contact good. Motor activity appropriate. Speech within normal limits. Affect congruent, mood euthymic. Thoughts linear, logical, no signs of hallucinations or delusions. Client Response/Progress/Benefit: []Pt responded well to session, providing support to peers and contributing. Pt reports meeting with her therapist, taking her meds, and using healthy coping skills. Pt reported using skills such as; journaling, music, deep breathing, grounding, and affirmations to cope with stressors. Pt engaged in discussion of problem-solving, learned the ABCDEs of problem-solving, and participated in the activity. Pt, along with peers, had to use outside of the box thinking and team work to accomplish the goal. Pt shared she learned that she tends to struggle with shutting down and not knowing what to do when she is faced with a problem, so pt benefitting from advocating for herself and asking for direction. Pt will work on problem-solving skills for homework. Pt will discharge from [facility] aftercare today as pt has met her tx goals and no longer meets criteria. Narrative Note: []
--- NOTE | 2024-05-06 16:14 | BH.DS_ITS ---
Discharge Summary Demographics Date of Admission:: 03/10/24 Discharge Date: 05/06/24 Presenting Problems at Admission:: Pt admitted to [facility] due to worsening symptoms of depression, anxiety, and agitation over the past few weeks. Triggers include recent break-up and difficulty maintaining a job. Pt currently endorses crying spells, hopelessness, lack of motivation, lack of energy, increased sleep, racing thoughts, restlessness, poor concentration, and isolation. Pt reports her mental health symptoms lead to pt either quitting or getting let go from jobs. Pt also reports difficulty functioning in her daily life due to symptoms. Pt admitted to [facility] to improve distress tolerance, challenge distortions, and maintain gains from IOP. Discharge Diagnoses:: F31.9 Bipolar disorder, NOS; Generalized anxiety disorder; Borderline personality disorder; Rule out PTSD Reason for Discharge:: Pt has accomplished tx goals AEB ability to maintain mood stability and gains made in IOP. Treatment Progress During Treatment & Response: Throughout [facility] client has reported consistent use of healthy coping skills such as journaling, music, deep breathing, grounding, and affirmations to cope with stressors. Client has reported difficulty with taking her medications consistently. Per client's discharge scores indicate an overall 2% decrease from her IOP admission scores. Client has reported throughout the program improved functioning and ability to manage stressors. Client responded well to program AEB consistent attendance, active engagement in sessions and consistent completion of homework. Issues Still to be Addressed:: Pt can benefit from ongoing counseling to focus on trauma symptoms and to increase distress tolerance. Pt also can benefit from building more self-confidence and getting back into her hobbies and goals. Discharge Recommendations/Instructions:: Pt will follow up with Hillary Beard through [facility] for medication management. Pt will also continue meeting with her therapist, Angélica, at [facility] on Wednesdays. Discharge Handout
== END 2024-05-06 06:55 | disposition home or self-care (01) ==
LOC: BHOG 07:10
PROVIDERS: PCP Family Medicine; Referring Provider Psychiatry & Neurology Psychiatry; Visit Provider Psychiatry & Neurology Psychiatry
DX: F31.9 Bipolar disorder, unspecified (principal); F41.1 Generalized anxiety disorder; F60.3 Borderline personality disorder
CPT/HCPCS: 90853

== ENCOUNTER → 2024-08-05 | Outpatient (CLI) | payer BC, SELFPAY ==
--- NOTE | 2024-08-05 16:00 | RAD_ITS ---
PROCEDURE: THORACIC SPINE 3 VIEWS 08/05/2024 REASON FOR EXAM: ASSESS VERTEBRAL ALIGNMENT AND DISC SPACES TECHNIQUE: 3 views of the thoracic spine; AP, lateral and swimmer's COMPARISON: None available FINDINGS: T1 and T2 are not well seen on the lateral views, appear within limits on the AP view. Otherwise the vertebral body heights and disc spaces appear within limits RAD/Thoracic Spine 3 Views IMPRESSION: Study appears within limits as above. Reading Location: [id number]
--- NOTE | 2024-08-05 16:00 | RAD_ITS ---
PROCEDURE: L/S SPINE MIN 4 VIEWS 08/05/2024 REASON FOR EXAM: ASSESS VERTEBRAL ALIGNMENT AND DISC SPACES,LEG NUMBNESS TECHNIQUE: Four views of the lumbosacral spine. COMPARISON: None FINDINGS: Vertebrae: No acute fracture or subluxation. Discs: Disc space heights are preserved. Alignment: Alignment is maintained. Other: No soft tissue abnormality. RAD/L/S Spine Min 4 Views IMPRESSION: Unremarkable radiograph of the lumbar spine. Reading Location: [id number]
--- NOTE | 2024-08-05 16:01 | RAD_ITS ---
PROCEDURE: CERV SPINE 4 OR 5 VIEWS 08/05/2024 REASON FOR EXAM: ASSESS VERTEBRAL ALIGNMENT AND DISC SPACES TECHNIQUE: 6 views of the cervical spine. AP, lateral, bilateral oblique, open-mouth odontoid and fuchs view COMPARISON: None available FINDINGS: Cervical spine is visualized on the lateral view from the skull base to the top of T1. Straightening may represent positioning or spasm. No prevertebral soft tissue swelling. No fracture or malalignment. The disc spaces appear within limits. No neural foraminal osseous narrowing. Visualized lung apices appear clear. RAD/Cerv Spine 4 or 5 Views IMPRESSION: Study appears within limits. Reading Location: [id number]
[2024-08-05 17:42] LABS: Absolute Lymphocyte Count 2.75 X10^3/uL (0.83-4.51); Absolute Neutrophil Count 9.7 X10^3/uL (2.0-7.7); Basophil# 0.08 X10^3/uL; Basophil% 0.6 % (0-1); Eosinophil# 0.42 X10^3/uL; Hematocrit 40.6 % (37-47); Hemoglobin 13.9 g/dL (12.0-15.0); Lymphocyte # 2.75 X10^3/ul (0.83-4.51); Lymphocyte % 19.9 % (19-41); Mean Corp Hgb Conc 34.2 g/dL (32-36); Mean Corpuscular Hgb 30.8 pg (27.0-32.0); Mean Platelet Vol. 9.1 fl (6.2-12.0); Monocyte# 0.79 X10^3/uL; Monocyte% 5.7 % (0-10); NRBC Flagged by Analyzer 0 % (0-5); Neutrophil # 9.72 X10^3/uL (2.7-7.7); Neutrophil % 70.2 % (47-70); Platelet Count 419 K/mm3 (150-450); RBC Distribution Width CV 12.9 % (11.6-14.6); RBC Distribution Width SD 42.9 fl (35.1-43.9); Red Blood Count 4.51 M/mm3 (4.2-5.4); White Blood Count 13.8 K/mm3 (4.4-11.0)
[2024-08-05 18:36] LABS: ALB/GLOB Ratio 1.3 RATIO (0.9-2.4); AST(SGOT) 31 U/L (<=31); Alanine Aminotransfer ALT/SGPT 28 U/L (<=34); Albumin, Serum 4.2 g/dL (3.5-5.0); Alkaline Phosphatase 107 U/L (35-104); Anion Gap 13 (5-15); BUN 6 mg/dL (4-19); Calcium,Total 9.4 mg/dL (7.6-11.0); Chloride 102 mmol/L (98-108); Cholesterol 220 mg/dL (<=190); Creatinine, Serum 0.71 mg/dL (0.70-1.20); EST Glomerular Filtration Rate 122 (>60); Globulin 3.2 g/dL (2.2-4.2); Glucose 94 mg/dL (70-99); High Density Lipoprotein 63 mg/dL; Low Density Lipoprotein Calc. 132 mg/dL; Potassium 3.9 mmol/L (3.3-5.1); Protein, Total 7.4 g/dL (5.9-8.4); Sodium Level 136 mmol/L (133-145); Total Bilirubin 0.16 mg/dL (0.00-1.30); Triglycerides 123 mg/dL; Very Low Density Lipoprotein 25 mg/dL (5-40); cholesterol:hdl ratio screen 3.47
== END | disposition home or self-care (01) ==
PROVIDERS: PCP Nurse Practitioner Family; Referring Provider Nurse Practitioner Family; Visit Provider Nurse Practitioner Family
DX: Z00.01 Encounter for general adult medical examination with abnormal findings (principal); M79.604 Pain in right leg; M79.605 Pain in left leg; M54.6 Pain in thoracic spine; M54.2 Cervicalgia
CPT/HCPCS: 36415; 72050; 72072; 72110; 80053; 80061; 85025